=== PATIENT | male | born 1955 | race Caucasian/White ===

== ENCOUNTER 2016-06-11 20:04 | Inpatient (IN) | payer MEDICAID ==
[~2016-06-11] VITALS: Ht 180.3 cm; Wt 113.1 kg
[2016-06-11] MEDS ORDERED: ACETAMINOPHEN 325 MG TAB PO ONE (20:45)
[2016-06-11 21:19] LABS: Hematocrit 41.3 % (41.0-53.0); Hemoglobin 13.4 g/dL (13.5-17.5); Mean Corpuscular Hgb Conc. 32.4 g/dL (32.0-36.0); Mean Corpuscular Volume 92.5 fL (80.0-100.0); Mean Platelet Volume 7.3 fL (7.4-10.4); Platelet Count (auto) 230 10^3/uL (140-450); Red Cell Distribution Width 14.3 % (11.6-16.0); SUSPECT VIEW TRANSMISSION; White Blood Cell 15.6 10^3/uL (4.4-10.8)
[2016-06-11 21:25] LABS: Metamyelocytes % 0; Myelocytes % 0; Promyelocytes % 0; Reactive Lymphocytes 0
[2016-06-11 21:32] LABS: Partial Thromboplastin Time 28.7 sec (22.64-33.71); Prothrombin Time 11.9 sec (9.37-12.3)
[2016-06-11 21:33] LABS: INR 1.16 (0.9-1.15)
[2016-06-11 21:41] LABS: Lactic Acid 3.1 mmol/L (0.4-2.0)
[2016-06-11 21:42] LABS: Albumin 3.9 g/dL (3.4-5.0); BUN/Creatinine Ratio 14.4; Calcium 9.2 mg/dL (8.5-10.1); Potassium 3.9 mmol/L (3.5-5.1); Total Protein 7.9 g/dL (6.4-8.2)
[2016-06-11 22:11] LABS: REFLEX LACTIC ACID YES OR NO YES
[2016-06-11 22:18] LABS: Platelet Estimate Adequate; RBC Morphology Normal
[2016-06-11 23:21] LABS: Lactic Acid 2.1 mmol/L (0.4-2.0)
[2016-06-11 23:29] LABS: REFLEX LACTIC ACID YES OR NO NO
[2016-06-12] VITALS (8 sets, daily range): BP systolic 121–185; BP diastolic 67–98
[2016-06-12] MEDS ORDERED: VANCOMYCIN 1GM/250ML D5W 250 ML IV ONE
[2016-06-12] MEDS ORDERED: PIPERACILLIN-TAZOB 3.375GM 100 ML IV ONE
[2016-06-12] MEDS ORDERED: SODIUM CHLORIDE 0.9% 1,000 ML IV ONE
[2016-06-12] MEDS: SODIUM CHLORIDE 0.9% 1,000 ML IV SCH ×3 (01:14→23:06)
[2016-06-12] MEDS ORDERED: MORPHINE SULF INJ 2 MG/ML SYRINGE 1ML IV PRN (01:15)
[2016-06-12] MEDS ORDERED: PANTOPRAZOLE SODIUM 40 MG/10 ML VIAL IV ONE (01:15)
[2016-06-12] MEDS ORDERED: NITROGLYCERIN 0.4 MG SL TAB SL PRN (01:15)
[2016-06-12] MEDS ORDERED: metroNIDAZOLE 500MG/100ML 100 ML IV ONE (01:15)
[2016-06-12] MEDS ORDERED: ACETAMINOPHEN 325 MG TAB PO PRN (01:15)
[2016-06-12] MEDS ORDERED: ONDANSETRON HCL 4 MG/2 ML VIAL IV PRN (01:15)
[2016-06-12] MEDS ORDERED: IBU800T PO (03:54)
[2016-06-12] MEDS ORDERED: ASPITAB37 PO (03:54)
[2016-06-12] MEDS: cefTRIAXone 1GM/50ML D5W 50 ML IV SCH (03:57)
[2016-06-12 04:16] LABS: Urine Bilirubin Negative (Negative); Urine Blood TRACE /uL (Negative); Urine Color Yellow (Yellow); Urine Hyaline Cast FEW /lpf (0 - 2); Urine Ketone Negative (Negative); Urine Nitrite Negative (Negative); Urine RBC <1 /hpf (0 - 3); Urine Squamous Epithelial Cell FEW /hpf (<5); Urine Urobilinogen Normal (Negative)
[2016-06-12 04:31] LABS: Urine Glucose 1+ mg/dL (Normal)
[2016-06-12] MEDS ORDERED: INFLUENZA QUAD 2016-2017 0.5 ML SYRG IM ONE (05:00)
[2016-06-12] MEDS ORDERED: ENOXAPARIN SOD 30 MG/0.3 ML SYRINGE SC SCH (10:00)
[2016-06-12] MEDS: ENOXAPARIN SOD 40 MG/0.4 ML SYRINGE SC SCH (10:32)
[2016-06-12] MEDS: PANTOPRAZOLE SODIUM 40 MG/10 ML VIAL IV SCH (10:32)
[2016-06-12] MEDS: metroNIDAZOLE 500MG/100ML 100 ML IV SCH ×2 (10:32→18:43)
[2016-06-12] MEDS ORDERED: metFORMIN HYDROCHLORIDE 500 MG TAB PO ONE (15:15)
[2016-06-12] MEDS ORDERED: DEXTROSE (50%) 50ML SYRG IV PRN (15:15)
[2016-06-12] MEDS: InsuLIN REG 1unit/0.01ml Soln (100units/ml) SC SCH ×2 (17:00→22:14)
[2016-06-12] MEDS: ACCU-CHEK COMFORT CURVE STRIP VI SCH ×2 (17:21→22:14)
[2016-06-13] MEDS: cefTRIAXone 1GM/50ML D5W 50 ML IV SCH (01:36)
[2016-06-13] MEDS: metroNIDAZOLE 500MG/100ML 100 ML IV SCH ×3 (02:34→17:23)
[2016-06-13 05:03] VITALS: BP 158/97
[2016-06-13 06:23] LABS: Basophils # (auto) 0 uL; Basophils % (auto) 0.1 % (0.0-2.0); Eosinophils # (auto) 0.2 uL; Eosinophils % (auto) 3.2 % (0.0-7.0); Hematocrit 34.5 % (41.0-53.0); Lymphocytes # (auto) 1.2 uL; Lymphocytes % (auto) 18.1 % (10.0-50.0); Mean Corpuscular Hemoglobin 29.7 pg (28.0-32.0); Mean Corpuscular Hgb Conc. 31.8 g/dL (32.0-36.0); Mean Corpuscular Volume 93.6 fL (80.0-100.0); Mean Platelet Volume 7.6 fL (7.4-10.4); Monocytes # (auto) 0.7 uL; Monocytes % (auto) 9.9 % (0.0-12.0); Neutrophils # (auto) 4.5 uL; Neutrophils % (auto) 68.7 % (37.0-80.0); Platelet Count (auto) 183 10^3/uL (140-450); Red Cell Distribution Width 14.2 % (11.6-16.0); White Blood Cell 6.6 10^3/uL (4.4-10.8)
[2016-06-13] MEDS: InsuLIN REG 1unit/0.01ml Soln (100units/ml) SC SCH ×4 (06:38→22:00)
[2016-06-13 07:00] LABS: Albumin 3.1 g/dL (3.4-5.0); BUN/Creatinine Ratio 14.4; Calcium 8.3 mg/dL (8.5-10.1); Potassium 3.8 mmol/L (3.5-5.1)
[2016-06-13 07:03] LABS: Bilirubin, Total 0.3 mg/dL (0.2-1.0); Total Protein 6.8 g/dL (6.4-8.2)
[2016-06-13] MEDS: ACCU-CHEK COMFORT CURVE STRIP VI SCH ×4 (07:06→22:00)
[2016-06-13 08:18] VITALS: BP 145/78
[2016-06-13 08:58] VITALS: BP 145/78
[2016-06-13] MEDS: PANTOPRAZOLE SODIUM 40 MG/10 ML VIAL IV SCH (09:26)
[2016-06-13] MEDS: ENOXAPARIN SOD 40 MG/0.4 ML SYRINGE SC SCH (09:54)
[2016-06-13] MEDS ORDERED: metFORMIN HYDROCHLORIDE 500 MG TAB PO SCH (10:00)
[2016-06-13] MEDS ORDERED: ENALAPRIL MALEATE 2.5 MG TAB PO ONE (12:45)
[2016-06-13] MEDS: SODIUM CHLORIDE 0.9% 1,000 ML IV SCH ×2 (12:47→23:24)
[2016-06-13 13:00] VITALS: BP 107/56
[2016-06-13 17:00] VITALS: BP 164/100
[2016-06-13] MEDS: metFORMIN HYDROCHLORIDE 500 MG TAB PO SCH (21:39)
[2016-06-13 22:00] VITALS: BP_SYST 155; BP_SYST 158; BP_DIAS 89; BP_DIAS 96
[2016-06-14] MEDS: cefTRIAXone 1GM/50ML D5W 50 ML IV SCH (01:30)
[2016-06-14] MEDS: metroNIDAZOLE 500MG/100ML 100 ML IV SCH (02:15)
[2016-06-14 05:48] VITALS: BP 158/86
[2016-06-14] MEDS: InsuLIN REG 1unit/0.01ml Soln (100units/ml) SC SCH ×4 (06:21→22:00)
[2016-06-14] MEDS: ACCU-CHEK COMFORT CURVE STRIP VI SCH ×4 (06:23→22:00)
[2016-06-14 07:42] VITALS: BP 165/78
[2016-06-14] MEDS: glipiZIDE 5 MG TAB PO SCH ×2 (09:39→17:46)
[2016-06-14] MEDS ORDERED: ENALAPRIL MALEATE 2.5 MG TAB PO SCH (10:00)
[2016-06-14 12:00] VITALS: BP 160/87
[2016-06-14] MEDS: ENOXAPARIN SOD 40 MG/0.4 ML SYRINGE SC SCH (13:32)
[2016-06-14] MEDS: PANTOPRAZOLE 40 MG TAB PO SCH (13:32)
[2016-06-14] MEDS: metFORMIN HYDROCHLORIDE 500 MG TAB PO SCH ×2 (13:33→23:10)
[2016-06-14] MEDS: ENALAPRIL MALEATE 2.5 MG TAB PO SCH ×2 (13:34→23:11)
[2016-06-14] MEDS: FUROSEMIDE 40 MG TAB PO SCH (13:35)
[2016-06-14 16:00] VITALS: BP 163/87
[2016-06-14 20:43] VITALS: BP 144/79
[2016-06-15 05:34] VITALS: BP 156/87
[2016-06-15] MEDS: glipiZIDE 5 MG TAB PO SCH ×2 (06:35→18:26)
[2016-06-15] MEDS: InsuLIN REG 1unit/0.01ml Soln (100units/ml) SC SCH ×4 (06:36→23:03)
[2016-06-15] MEDS: ACCU-CHEK COMFORT CURVE STRIP VI SCH ×4 (06:37→22:00)
[2016-06-15 08:44] VITALS: BP 136/62
[2016-06-15] MEDS: ENOXAPARIN SOD 40 MG/0.4 ML SYRINGE SC SCH (09:17)
[2016-06-15] MEDS: PANTOPRAZOLE 40 MG TAB PO SCH (09:17)
[2016-06-15] MEDS: metFORMIN HYDROCHLORIDE 500 MG TAB PO SCH ×2 (09:18→22:19)
[2016-06-15] MEDS: FUROSEMIDE 40 MG TAB PO SCH (09:18)
[2016-06-15] MEDS: ENALAPRIL MALEATE 2.5 MG TAB PO SCH ×2 (09:24→22:19)
[2016-06-15] MEDS ORDERED: LACTULOSE 20Gm/30ML SOLN PO PRN (12:45)
[2016-06-15 12:50] VITALS: BP 150/87
[2016-06-15 12:57] LABS: Albumin 3.3 g/dL (3.4-5.0); Calcium 8.7 mg/dL (8.5-10.1); Potassium 3.6 mmol/L (3.5-5.1)
[2016-06-15 13:00] LABS: Bilirubin, Total 0.5 mg/dL (0.2-1.0); Total Protein 6.7 g/dL (6.4-8.2)
[2016-06-15] MEDS ORDERED: cefTRIAXone 1GM/50ML D5W 50 ML IV ONE (13:15)
[2016-06-15] MEDS: CLINDAMYCIN 600MG IV 50 ML IV SCH ×2 (13:58→22:19)
[2016-06-15 14:49] LABS: Basophils # (auto) 0 uL; Basophils % (auto) 0.4 % (0.0-2.0); Eosinophils # (auto) 0.2 uL; Eosinophils % (auto) 2.7 % (0.0-7.0); Hematocrit 38.9 % (41.0-53.0); Hemoglobin 12.8 g/dL (13.5-17.5); Lymphocytes % (auto) 15.7 % (10.0-50.0); Mean Corpuscular Hemoglobin 30.3 pg (28.0-32.0); Mean Corpuscular Hgb Conc. 32.8 g/dL (32.0-36.0); Mean Corpuscular Volume 92.5 fL (80.0-100.0); Mean Platelet Volume 7.1 fL (7.4-10.4); Monocytes # (auto) 0.4 uL; Monocytes % (auto) 5.7 % (0.0-12.0); Neutrophils # (auto) 4.9 uL; Neutrophils % (auto) 75.5 % (37.0-80.0); Platelet Count (auto) 272 10^3/uL (140-450); Red Cell Distribution Width 14.5 % (11.6-16.0); White Blood Cell 6.4 10^3/uL (4.4-10.8)
[2016-06-15] MEDS: HYDROcodone-ACET 5/325MG TAB PO PRN (14:57)
[2016-06-15 16:38] VITALS: BP 108/72
[2016-06-15 21:30] VITALS: BP 132/73
[2016-06-16 05:00] VITALS: BP 115/58
[2016-06-16] MEDS: CLINDAMYCIN 600MG IV 50 ML IV SCH ×2 (05:49→13:42)
[2016-06-16] MEDS: glipiZIDE 5 MG TAB PO SCH (06:26)
[2016-06-16] MEDS: InsuLIN REG 1unit/0.01ml Soln (100units/ml) SC SCH ×2 (06:26→11:30)
[2016-06-16] MEDS: ACCU-CHEK COMFORT CURVE STRIP VI SCH ×2 (06:26→11:30)
[2016-06-16] MEDS: PANTOPRAZOLE 40 MG TAB PO SCH (08:55)
[2016-06-16] MEDS: metFORMIN HYDROCHLORIDE 500 MG TAB PO SCH (08:55)
[2016-06-16] MEDS: ENOXAPARIN SOD 40 MG/0.4 ML SYRINGE SC SCH (08:55)
[2016-06-16 08:57] VITALS: BP 127/65
[2016-06-16] MEDS ORDERED: cefTRIAXone 1GM/50ML D5W 50 ML IV SCH (09:00)
[2016-06-16] MEDS: HYDROcodone-ACET 5/325MG TAB PO PRN (09:02)
[2016-06-16] MEDS: ENALAPRIL MALEATE 2.5 MG TAB PO SCH (09:06)
[2016-06-16 11:18] LABS: BUN/Creatinine Ratio 14.4; Calcium 8.9 mg/dL (8.5-10.1); Potassium 4.2 mmol/L (3.5-5.1)
[2016-06-16 13:00] VITALS: BP 148/80
[2016-06-16 13:37] VITALS: BP 130/66
[2016-06-16 15:45] VITALS: BP 127/65
== END 2016-06-16 15:45 | disposition home or self-care (01) | DRG 249 ==
LOC: EDBD 20:04 → ER 20:04 → EAST 20:05
PROVIDERS: ADMIT Nurse Practitioner; ATTEND Internal Medicine
DX: K52.9 Noninfective gastroenteritis and colitis, unspecified (principal); N17.9 Acute kidney failure, unspecified; E87.2 Acidosis; E11.21 Type 2 diabetes mellitus with diabetic nephropathy; I12.9 Hypertensive chronic kidney disease with stage 1 through stage 4 chronic kidney disease, or unspecified chronic kidney disease; E11.65 Type 2 diabetes mellitus with hyperglycemia; L84 Corns and callosities; E11.22 Type 2 diabetes mellitus with diabetic chronic kidney disease; E11.42 Type 2 diabetes mellitus with diabetic polyneuropathy; K76.0 Fatty (change of) liver, not elsewhere classified; E87.1 Hypo-osmolality and hyponatremia; E66.01 Morbid (severe) obesity due to excess calories; E86.0 Dehydration; N18.2 Chronic kidney disease, stage 2 (mild); L03.032 Cellulitis of left toe; Z68.34 Body mass index [BMI] 34.0-34.9, adult; Z23 Encounter for immunization; Z83.6 Family history of other diseases of the respiratory system; Z84.89 Family history of other specified conditions; Z79.899 Other long term (current) drug therapy
CPT/HCPCS: 36415; 71010; 74177; 80048; 80053; 81001; 82962; 83036; 83605; 83690; 84484; 84550; 85007; 85025; 85027; 85610; 85652; 85730; 87040; 87493; 93005; 96365; C9113; J0696; J1815; J2543; J3490

== ENCOUNTER 2021-11-08 13:18 | Inpatient (IN) | payer MEDICARE, MEDICAID ==
[~2021-11-08] VITALS: Ht 180.3 cm; Wt 22.5 kg
[~2021-11-08 13:18] MED LIST: ASPITAB37 PO; IBUP800T26 PO
[2021-11-08 14:48] LABS: Basophils # (auto) 0 10 ^3/uL (0-0.2); Eosinophils # (auto) 0 10 ^3/uL (0-0.8); Eosinophils % (auto) 0.3 % (0.0-7.0); Hemoglobin 8.6 g/dL (13.5-17.5); Lymphocytes # (auto) 0.8 10 ^3/uL (0.4-5.4); Monocytes # (auto) 0.7 10 ^3/uL (0-1.3)
[2021-11-08 14:50] LABS: Basophils % (auto) 0.3 % (0.0-2.0); Lymphocytes % (auto) 8.5 % (10.0-50.0); Mean Corpuscular Hemoglobin 24.3 pg (28.0-32.0); Mean Corpuscular Hgb Conc. 31.9 g/dL (32.0-36.0); Mean Corpuscular Volume 76.4 fL (80.0-100.0); Neutrophils # (auto) 7.9 10 ^3/uL (1.6-8.6); Neutrophils % (auto) 83.9 % (37.0-80.0); Red Blood Cells 3.54 10^6/uL (4.5-5.90); Red Cell Distribution Width 18.3 % (11.8-14.3); White Blood Cell 9.4 10^3/uL (4.4-10.8)
[2021-11-08 15:05] LABS: Lactic Acid w/Reflex 2.8 mmol/L (0.4-2.0)
[2021-11-08 15:12] LABS: Albumin 2.6 g/dL (3.4-5.0); BUN/Creatinine Ratio 15.2; Calcium 8.9 mg/dL (8.5-10.1); Magnesium 1.7 mg/dL (1.6-2.6)
[2021-11-08 15:15] LABS: Bilirubin, Total 0.4 mg/dL (0.2-1.0); Total Protein 6.8 g/dL (6.4-8.2)
[2021-11-08] MEDS ORDERED: SODIUM CHLORIDE 0.9% 1,000 ML IV ONE (16:00)
[2021-11-08] MEDS ORDERED: LACTATED RINGER'S 1,000 ML IV ONE (16:00)
[2021-11-08 17:41] LABS: Urine Bacteria NONE SEEN /hpf (None Seen); Urine Blood Negative /uL (Negative); Urine Specific Gravity 1.021 (1.001-1.035); Urine WBC 1 /hpf (0 - 3)
[2021-11-08] MEDS ORDERED: MORPHINE SULFATE INJ 2 MG/ml SYRG IV PRN ×2 (18:15)
[2021-11-08] MEDS ORDERED: ONDANSETRON HCL 4 MG/2 ML VIAL IV PRN (18:15)
[2021-11-08] MEDS ORDERED: NITROGLYCERIN 0.4 MG SL TAB SL PRN (18:15)
[2021-11-08] MEDS ORDERED: cefTRIAXone 1GM/50ML D5W 50 ML IV ONE (18:15)
[2021-11-08 23:41] VITALS: BP 96/63
[2021-11-08] MEDS: CLINDAMYCIN 600MG IV 50 ML IV SCH (23:42)
[2021-11-09 03:26] LABS: Cholesterol 72 mg/dL (< 200)
[2021-11-09 03:28] LABS: HDL Cholesterol 34 mg/dL (40-59); LDL Cholesterol 31 mg/dL (< 100); Triglycerides 103 mg/dL (< 150)
[2021-11-09 05:13] LABS: Basophils # (auto) 0 10 ^3/uL (0-0.2); Eosinophils # (auto) 0.1 10 ^3/uL (0-0.8); Lymphocytes # (auto) 1.2 10 ^3/uL (0.4-5.4); Mean Corpuscular Hemoglobin 24.2 pg (28.0-32.0); Monocytes # (auto) 0.7 10 ^3/uL (0-1.3); Monocytes % (auto) 10.4 % (0.0-12.0); Neutrophils # (auto) 5.1 10 ^3/uL (1.6-8.6); White Blood Cell 7.1 10^3/uL (4.4-10.8)
[2021-11-09 05:15] LABS: Basophils % (auto) 0.6 % (0.0-2.0); Eosinophils % (auto) 1.1 % (0.0-7.0); Hematocrit 22.9 % (41.0-53.0); Hemoglobin 7.3 g/dL (13.5-17.5); Lymphocytes % (auto) 16.9 % (10.0-50.0); Mean Corpuscular Hgb Conc. 31.7 g/dL (32.0-36.0); Mean Corpuscular Volume 76.3 fL (80.0-100.0); Red Blood Cells 3.01 10^6/uL (4.5-5.90); Red Cell Distribution Width 18.4 % (11.8-14.3)
[2021-11-09 05:22] VITALS: BP 90/41
[2021-11-09 05:31] LABS: Potassium 4.2 mmol/L (3.5-5.1)
[2021-11-09 05:36] LABS: Albumin 2.3 g/dL (3.4-5.0); BUN/Creatinine Ratio 17.1; Calcium 8.7 mg/dL (8.5-10.1)
[2021-11-09 05:39] LABS: Bilirubin, Total 0.2 mg/dL (0.2-1.0); Total Protein 5.9 g/dL (6.4-8.2)
[2021-11-09] MEDS: CLINDAMYCIN 600MG IV 50 ML IV SCH ×3 (06:05→22:12)
[2021-11-09 09:00] VITALS: BP 111/62
[2021-11-09] MEDS: cefTRIAXone 1GM/50ML D5W 50 ML IV SCH (09:35)
[2021-11-09] MEDS: ENOXAPARIN SOD 40 MG/0.4 ML SYRINGE SC SCH (09:35)
[2021-11-09] MEDS ORDERED: DEXTROSE (50%) 50ML SYRG IV PRN (11:00)
[2021-11-09] MEDS: InsuLIN REG 1unit/0.01ml Soln (100units/ml) SC SCH ×3 (11:30→22:00)
[2021-11-09] MEDS: ACCU-CHEK COMFORT CURVE STRIP VI SCH ×3 (11:38→22:12)
[2021-11-09 13:00] VITALS: BP 106/68
[2021-11-09 22:00] VITALS: BP 112/70
[2021-11-10 05:00] VITALS: BP 104/68
[2021-11-10] MEDS: CLINDAMYCIN 600MG IV 50 ML IV SCH ×3 (06:25→22:19)
[2021-11-10] MEDS: InsuLIN REG 1unit/0.01ml Soln (100units/ml) SC SCH ×4 (06:29→22:00)
[2021-11-10] MEDS: ACCU-CHEK COMFORT CURVE STRIP VI SCH ×4 (06:29→22:16)
[2021-11-10 08:30] LABS: Albumin 2.3 g/dL (3.4-5.0); Calcium 8.4 mg/dL (8.5-10.1); Potassium 4.7 mmol/L (3.5-5.1)
[2021-11-10 08:35] LABS: BUN/Creatinine Ratio 17.1; Basophils # (auto) 0 10 ^3/uL (0-0.2); Bilirubin, Total 0.3 mg/dL (0.2-1.0); Eosinophils # (auto) 0.1 10 ^3/uL (0-0.8); Eosinophils % (auto) 0.7 % (0.0-7.0); Hemoglobin 7.3 g/dL (13.5-17.5); Lymphocytes # (auto) 0.8 10 ^3/uL (0.4-5.4); Neutrophils # (auto) 7.1 10 ^3/uL (1.6-8.6); Total Protein 6.1 g/dL (6.4-8.2); White Blood Cell 8.7 10^3/uL (4.4-10.8)
[2021-11-10 08:36] LABS: Basophils % (auto) 0.3 % (0.0-2.0); Hematocrit 22.4 % (41.0-53.0); Lymphocytes % (auto) 9.5 % (10.0-50.0); Mean Corpuscular Hemoglobin 24.7 pg (28.0-32.0); Mean Corpuscular Hgb Conc. 32.5 g/dL (32.0-36.0); Mean Corpuscular Volume 75.9 fL (80.0-100.0); Monocytes # (auto) 0.6 10 ^3/uL (0-1.3); Monocytes % (auto) 7.4 % (0.0-12.0); Neutrophils % (auto) 82.1 % (37.0-80.0); Red Blood Cells 2.96 10^6/uL (4.5-5.90); Red Cell Distribution Width 18.6 % (11.8-14.3)
[2021-11-10 08:52] VITALS: BP 99/60
[2021-11-10] MEDS: ENOXAPARIN SOD 40 MG/0.4 ML SYRINGE SC SCH (09:10)
[2021-11-10] MEDS: cefTRIAXone 1GM/50ML D5W 50 ML IV SCH (09:10)
[2021-11-10 13:00] VITALS: BP 101/66
[2021-11-10 17:15] VITALS: BP 117/72
[2021-11-10 22:00] VITALS: BP 101/67
[2021-11-11 05:00] VITALS: BP 96/66
[2021-11-11] MEDS: CLINDAMYCIN 600MG IV 50 ML IV SCH ×2 (06:08→14:00)
[2021-11-11] MEDS: ACCU-CHEK COMFORT CURVE STRIP VI SCH ×2 (06:28→12:30)
[2021-11-11] MEDS: InsuLIN REG 1unit/0.01ml Soln (100units/ml) SC SCH ×2 (06:28→11:30)
[2021-11-11 07:01] LABS: Basophils # (auto) 0 10 ^3/uL (0-0.2); Eosinophils # (auto) 0.1 10 ^3/uL (0-0.8); Hemoglobin 7.7 g/dL (13.5-17.5); Lymphocytes # (auto) 1.3 10 ^3/uL (0.4-5.4); Monocytes # (auto) 0.6 10 ^3/uL (0-1.3); Red Cell Distribution Width 18.6 % (11.8-14.3)
[2021-11-11 07:05] LABS: Basophils % (auto) 0.5 % (0.0-2.0); Eosinophils % (auto) 1.3 % (0.0-7.0); Hematocrit 23.5 % (41.0-53.0); Lymphocytes % (auto) 21.7 % (10.0-50.0); Mean Corpuscular Hemoglobin 25.1 pg (28.0-32.0); Mean Corpuscular Hgb Conc. 32.7 g/dL (32.0-36.0); Mean Corpuscular Volume 76.7 fL (80.0-100.0); Monocytes % (auto) 10.2 % (0.0-12.0); Neutrophils % (auto) 66.3 % (37.0-80.0); Red Blood Cells 3.07 10^6/uL (4.5-5.90)
[2021-11-11 07:14] LABS: Albumin 2.5 g/dL (3.4-5.0); Calcium 8.8 mg/dL (8.5-10.1); Potassium 4.3 mmol/L (3.5-5.1)
[2021-11-11 07:22] LABS: BUN/Creatinine Ratio 18.3; Bilirubin, Total 0.2 mg/dL (0.2-1.0); Total Protein 6.5 g/dL (6.4-8.2)
[2021-11-11 08:07] VITALS: BP 92/62
[2021-11-11] MEDS: cefTRIAXone 1GM/50ML D5W 50 ML IV SCH (08:40)
[2021-11-11] MEDS: ENOXAPARIN SOD 40 MG/0.4 ML SYRINGE SC SCH (08:41)
[2021-11-11] MEDS ORDERED: FERR-7 PO (10:01)
[2021-11-11] MEDS ORDERED: CLIN300C8 PO (10:01)
[2021-11-11 12:15] VITALS: BP 92/62
[2021-11-11 14:29] VITALS: BP 94/64
== END 2021-11-11 15:58 | disposition home or self-care (01) | DRG 637 ==
LOC: ER 13:18 → TELE 18:10 → TELE-WESTW 22:20
PROVIDERS: ADMIT Registered Nurse; ATTEND Family Medicine
DX: E11.621 Type 2 diabetes mellitus with foot ulcer (principal); E43 Unspecified severe protein-calorie malnutrition; E87.2 Acidosis; Z68.1 Body mass index [BMI] 19.9 or less, adult; L08.9 Local infection of the skin and subcutaneous tissue, unspecified; E86.0 Dehydration; D64.9 Anemia, unspecified; E11.22 Type 2 diabetes mellitus with diabetic chronic kidney disease; E11.51 Type 2 diabetes mellitus with diabetic peripheral angiopathy without gangrene; E11.65 Type 2 diabetes mellitus with hyperglycemia; I12.9 Hypertensive chronic kidney disease with stage 1 through stage 4 chronic kidney disease, or unspecified chronic kidney disease; L97.529 Non-pressure chronic ulcer of other part of left foot with unspecified severity; N18.9 Chronic kidney disease, unspecified; R54 Age-related physical debility; R55 Syncope and collapse; R80.9 Proteinuria, unspecified; R00.0 Tachycardia, unspecified; G62.9 Polyneuropathy, unspecified; S91.109A Unspecified open wound of unspecified toe(s) without damage to nail, initial encounter; X58.XXXA Exposure to other specified factors, initial encounter; Z98.62 Peripheral vascular angioplasty status; Z87.891 Personal history of nicotine dependence; Y93.9 Activity, unspecified; Y92.89 Other specified places as the place of occurrence of the external cause; Y99.8 Other external cause status
CPT/HCPCS: 36415; 71045; 73630; 73718; 80053; 80061; 81001; 82962; 83036; 83605; 83690; 83735; 83880; 84439; 84443; 84484; 85025; 86850; 86900; 86901; 87086; 93005; 93306; 93886; 93925; 96361; 96365; G0378; J0696; J1815; J3490

== ENCOUNTER 2022-01-02 10:36 | Inpatient (IN) | payer MEDICARE, MEDICAID ==
[~2022-01-02] VITALS: Ht 180.3 cm; Wt 85.0 kg
[2022-01-02] VITALS (7 sets, daily range): BP systolic 104–125; BP diastolic 62–73
[~2022-01-02 10:36] MED LIST changes: +CLIN300C8 PO; +FERR-7 PO
[2022-01-02 11:25] LABS: Basophils # (auto) 0 10 ^3/uL (0-0.2); Eosinophils # (auto) 0 10 ^3/uL (0-0.8); Lymphocytes # (auto) 0.9 10 ^3/uL (0.4-5.4); Monocytes # (auto) 0.6 10 ^3/uL (0-1.3); Nucleated Red Blood Cells % 0.1 %
[2022-01-02 11:27] LABS: Basophils % (auto) 0.4 % (0.0-2.0); Hematocrit 19.1 % (41.0-53.0); Lymphocytes % (auto) 10.2 % (10.0-50.0); Mean Corpuscular Hemoglobin 25.1 pg (28.0-32.0); Mean Corpuscular Volume 78.5 fL (80.0-100.0); Monocytes % (auto) 6.8 % (0.0-12.0); Neutrophils % (auto) 82.6 % (37.0-80.0); Red Blood Cells 2.43 10^6/uL (4.5-5.90); Red Cell Distribution Width 20.8 % (11.8-14.3); White Blood Cell 8.4 10^3/uL (4.4-10.8)
[2022-01-02 11:33] LABS: Hemoglobin 6.1 g/dL (13.5-17.5)
[2022-01-02 11:47] LABS: Albumin 1.9 g/dL (3.4-5.0); BUN/Creatinine Ratio 20.4; Calcium 8.1 mg/dL (8.5-10.1); Magnesium 2.1 mg/dL (1.6-2.6); Potassium 3.6 mmol/L (3.5-5.1)
[2022-01-02 11:50] LABS: Bilirubin, Total 0.6 mg/dL (0.2-1.0); Total Protein 5.3 g/dL (6.4-8.2)
[2022-01-02] MEDS ORDERED: ASPirin 81 mg TAB PO ONE (12:30)
[2022-01-02 14:19] LABS: INR 1.13 (0.9-1.15); Partial Thromboplastin Time 27.1 sec (24.6-33.4)
[2022-01-02 15:57] LABS: Urine Bacteria FEW /hpf (None Seen); Urine Blood Negative /uL (Negative); Urine Mucus FEW (None Seen); Urine Specific Gravity 1.021 (1.001-1.035); Urine WBC 2 /hpf (0 - 3)
[2022-01-02] MEDS ORDERED: MORPHINE SULFATE INJ 2 MG/ml SYRG IV PRN ×2 (17:45)
[2022-01-02] MEDS ORDERED: NITROGLYCERIN 0.4 MG SL TAB SL PRN (17:45)
[2022-01-02] MEDS ORDERED: cefTRIAXone 1GM/50ML D5W 50 ML IV ONE (18:00)
[2022-01-02] MEDS: SODIUM CHLORIDE 0.9% 1,000 ML IV SCH (18:00)
[2022-01-02] MEDS ORDERED: DEXTROSE (50%) 50ML SYRG IV PRN (18:45)
[2022-01-02] MEDS: InsuLIN REG 1unit/0.01ml Soln (100units/ml) SC SCH (22:00)
[2022-01-02] MEDS ORDERED: metroNIDAZOLE 500MG/100ML 100 ML IV SCH (22:00)
[2022-01-02] MEDS: PANTOPRAZOLE 40 MG/10 ML VIAL INJ IV SCH (22:00)
[2022-01-02] MEDS: ACCU-CHEK COMFORT CURVE STRIP VI SCH (22:00)
[2022-01-02 23:31] LABS: Hematocrit 17.8 % (41.0-53.0)
[2022-01-02] MEDS ORDERED: ATOR-47 PO (23:42)
[2022-01-02] MEDS ORDERED: ENAL10TA13 PO (23:42)
[2022-01-02] MEDS ORDERED: CLOP75TA70 PO (23:42)
[2022-01-02] MEDS ORDERED: CHOL1TAB30 PO (23:42)
[2022-01-02 23:44] LABS: Hemoglobin 5.8 g/dL (13.5-17.5)
[2022-01-03] VITALS (15 sets, daily range): BP systolic 103–140; BP diastolic 62–87
[2022-01-03] MEDS ORDERED: cefTRIAXone 1GM/50ML D5W 50 ML IV ONE (03:00)
[2022-01-03] MEDS: SODIUM CHLORIDE 0.9% 1,000 ML IV SCH ×2 (04:00→11:00)
[2022-01-03] MEDS: metroNIDAZOLE 500MG/100ML 100 ML IV SCH ×3 (04:24→20:35)
[2022-01-03] MEDS: ACCU-CHEK COMFORT CURVE STRIP VI SCH ×4 (06:10→22:33)
[2022-01-03] MEDS: InsuLIN REG 1unit/0.01ml Soln (100units/ml) SC SCH ×4 (06:11→22:00)
[2022-01-03 07:36] LABS: Basophils # (auto) 0 10 ^3/uL (0-0.2); Eosinophils # (auto) 0 10 ^3/uL (0-0.8); Eosinophils % (auto) 0.5 % (0.0-7.0); Lymphocytes # (auto) 0.7 10 ^3/uL (0.4-5.4); Monocytes # (auto) 0.4 10 ^3/uL (0-1.3); Neutrophils % (auto) 80.5 % (37.0-80.0); White Blood Cell 5.9 10^3/uL (4.4-10.8)
[2022-01-03 07:38] LABS: Basophils % (auto) 0.2 % (0.0-2.0); Hematocrit 17.5 % (41.0-53.0); Lymphocytes % (auto) 12.2 % (10.0-50.0); Mean Corpuscular Hemoglobin 25.6 pg (28.0-32.0); Mean Corpuscular Hgb Conc. 32.5 g/dL (32.0-36.0); Mean Corpuscular Volume 78.8 fL (80.0-100.0); Monocytes % (auto) 6.6 % (0.0-12.0); Neutrophils # (auto) 4.8 10 ^3/uL (1.6-8.6); Red Blood Cells 2.23 10^6/uL (4.5-5.90)
[2022-01-03 07:46] LABS: Hemoglobin 5.7 g/dL (13.5-17.5)
[2022-01-03 07:55] LABS: Albumin 1.6 g/dL (3.4-5.0); BUN/Creatinine Ratio 24.4; Calcium 8.2 mg/dL (8.5-10.1); Potassium 3.3 mmol/L (3.5-5.1)
[2022-01-03 07:58] LABS: Bilirubin, Total 0.4 mg/dL (0.2-1.0)
[2022-01-03 08:54] LABS: Basophils # (auto) 0 10 ^3/uL (0-0.2); Eosinophils # (auto) 0 10 ^3/uL (0-0.8); Eosinophils % (auto) 0.5 % (0.0-7.0); Lymphocytes # (auto) 0.7 10 ^3/uL (0.4-5.4); Mean Corpuscular Volume 79.5 fL (80.0-100.0)
[2022-01-03 08:56] LABS: Basophils % (auto) 0.3 % (0.0-2.0); Hematocrit 20.4 % (41.0-53.0); Mean Corpuscular Hemoglobin 25.5 pg (28.0-32.0); Monocytes # (auto) 0.3 10 ^3/uL (0-1.3); Monocytes % (auto) 5.6 % (0.0-12.0); Neutrophils # (auto) 5.1 10 ^3/uL (1.6-8.6); Neutrophils % (auto) 82.6 % (37.0-80.0); Red Blood Cells 2.56 10^6/uL (4.5-5.90); White Blood Cell 6.2 10^3/uL (4.4-10.8)
[2022-01-03] MEDS ORDERED: cefTRIAXone 1GM/50ML D5W 50 ML IV SCH (09:00)
[2022-01-03 09:07] LABS: Hemoglobin 6.5 g/dL (13.5-17.5); Red Cell Distribution Width 20.9 % (11.8-14.3)
[2022-01-03 09:19] LABS: INR 1.1 (0.9-1.15)
[2022-01-03] MEDS ORDERED: POTASSIUM CHL 20 Meq TABLET PO ONE (11:00)
[2022-01-03] MEDS: PANTOPRAZOLE 40 MG/10 ML VIAL INJ IV SCH ×2 (11:45→22:31)
[2022-01-03] MEDS ORDERED: GOLYTELY 4L KIT PO ONE (12:00)
[2022-01-03 13:51] LABS: % Iron Saturation 13.2 % (20-55)
[2022-01-03] MEDS ORDERED: IOHEXOL 300 MG/ML 100ML BOTTLE IJ ONE (15:49)
[2022-01-03 17:55] LABS: Hemoglobin 7.5 g/dL (13.5-17.5)
[2022-01-03 17:59] LABS: Hematocrit 23.2 % (41.0-53.0)
[2022-01-04] MEDS: SODIUM CHLORIDE 0.9% 1,000 ML IV SCH ×2 (00:20→13:57)
[2022-01-04] MEDS: metroNIDAZOLE 500MG/100ML 100 ML IV SCH ×3 (04:13→21:06)
[2022-01-04 05:00] VITALS: BP 124/66
[2022-01-04] MEDS: ACCU-CHEK COMFORT CURVE STRIP VI SCH ×4 (06:12→21:08)
[2022-01-04] MEDS: InsuLIN REG 1unit/0.01ml Soln (100units/ml) SC SCH ×4 (06:12→21:08)
[2022-01-04 06:50] LABS: Basophils # (auto) 0 10 ^3/uL (0-0.2); Eosinophils # (auto) 0 10 ^3/uL (0-0.8); Monocytes # (auto) 0.3 10 ^3/uL (0-1.3); Neutrophils # (auto) 5.4 10 ^3/uL (1.6-8.6); White Blood Cell 6.2 10^3/uL (4.4-10.8)
[2022-01-04 07:30] LABS: Basophils % (auto) 0.2 % (0.0-2.0); Eosinophils % (auto) 0.3 % (0.0-7.0); Hematocrit 20.7 % (41.0-53.0); Lymphocytes # (auto) 0.4 10 ^3/uL (0.4-5.4); Lymphocytes % (auto) 6.9 % (10.0-50.0); Mean Corpuscular Hemoglobin 26.6 pg (28.0-32.0); Mean Corpuscular Volume 80.4 fL (80.0-100.0); Monocytes % (auto) 5.4 % (0.0-12.0); Neutrophils % (auto) 87.2 % (37.0-80.0); Red Blood Cells 2.58 10^6/uL (4.5-5.90)
[2022-01-04 07:31] LABS: Red Cell Distribution Width 20.4 % (11.8-14.3)
[2022-01-04 07:32] LABS: Hemoglobin 6.9 g/dL (13.5-17.5)
[2022-01-04 07:34] LABS: BUN/Creatinine Ratio 21.1; Calcium 7.6 mg/dL (8.5-10.1); Potassium 3.4 mmol/L (3.5-5.1)
[2022-01-04 09:00] VITALS: BP 113/67
[2022-01-04] MEDS: cefTRIAXone 1GM/50ML D5W 50 ML IV SCH (09:00)
[2022-01-04] MEDS ORDERED: LIDOCAINE VISCOUS 2% 15ML UD ONE (09:27)
[2022-01-04] MEDS ORDERED: MEPERIDINE HCL (25 MG/ML) 1ML VIAL ONE (09:42)
[2022-01-04] MEDS ORDERED: MIDAZOLAM HCL 2MG/2ML 2ml VIAL (1mg/ml) ONE ×2 (09:42→21:39)
[2022-01-04] MEDS ORDERED: fentaNYL CITRATE 100 MCG/2 ML VL ONE ×2 (09:42→21:39)
[2022-01-04] MEDS: PANTOPRAZOLE 40 MG/10 ML VIAL INJ IV SCH ×2 (10:00→21:08)
[2022-01-04] MEDS ORDERED: LABETALOL HCL 5 MG/ML 4ML SYRINGE IV PRN (10:00)
[2022-01-04] MEDS ORDERED: MORPHINE SULFATE 4 MG/ML SYR/VIAL IV PRN (10:00)
[2022-01-04] MEDS ORDERED: HYDROmorphone HCL 2 MG/ML VL/or syr IV PRN (10:00)
[2022-01-04] MEDS ORDERED: ONDANSETRON HCL 4 MG/2 ML VIAL IV PRN (10:00)
[2022-01-04] MEDS ORDERED: MIDAZOLAM HCL 2MG/2ML 2ml VIAL (1mg/ml) IV PRN (10:00)
[2022-01-04] MEDS ORDERED: ACCU-CHEK COMFORT CURVE STRIP VI ONE (10:00)
[2022-01-04] MEDS ORDERED: ePHEDrine SULFATE 50 MG/ML AMP IV PRN (10:00)
[2022-01-04] MEDS ORDERED: DexAMETHasone SOD PHOS 10MG/1ML VIAL INJ ONE ×2 (10:11→21:40)
[2022-01-04] MEDS ORDERED: PROPOFOL 10 MG/ML 20 ML IV ONE ×2 (10:11→21:40)
[2022-01-04] MEDS ORDERED: PHENYLEPHRINE HCL 10 MG/ML VL IV ONE (12:55)
[2022-01-04 13:00] VITALS: BP 129/78
[2022-01-04 16:53] VITALS: BP 119/73
[2022-01-04] MEDS ORDERED: HYDROmorphone HCL 2 MG/ML VL/or syr ONE (21:39)
[2022-01-04] MEDS ORDERED: ROCURONIUM 10MG/ML 10ML VIAL IV ONE (21:39)
[2022-01-04] MEDS ORDERED: ePHEDrine SULFATE 50 MG/ML AMP ONE (21:40)
[2022-01-04] MEDS ORDERED: LIDOCAINE HCL 100 MG/5ML (2%) SYRG INJ IV ONE (21:40)
[2022-01-04] MEDS ORDERED: KETOROLAC TROMETH 30 MG/ML 1ML VIAL ONE (21:40)
[2022-01-04] MEDS ORDERED: GLYCOPYRROLATE 0.2 MG/ML 1ML VIAL ONE (21:40)
[2022-01-05] MEDS: SODIUM CHLORIDE 0.9% 1,000 ML IV SCH ×2 (02:31→16:20)
[2022-01-05] MEDS: metroNIDAZOLE 500MG/100ML 100 ML IV SCH ×3 (04:14→19:39)
[2022-01-05 05:13] LABS: Basophils # (auto) 0 10 ^3/uL (0-0.2); Basophils % (auto) 0.1 % (0.0-2.0); Eosinophils # (auto) 0 10 ^3/uL (0-0.8); Hematocrit 26.2 % (41.0-53.0); Hemoglobin 8.7 g/dL (13.5-17.5); Lymphocytes # (auto) 0.7 10 ^3/uL (0.4-5.4); Monocytes # (auto) 0.2 10 ^3/uL (0-1.3); Red Blood Cells 3.24 10^6/uL (4.5-5.90)
[2022-01-05 05:16] LABS: Lymphocytes % (auto) 10.5 % (10.0-50.0); Mean Corpuscular Hgb Conc. 33.4 g/dL (32.0-36.0); Mean Corpuscular Volume 80.8 fL (80.0-100.0); Monocytes % (auto) 3.3 % (0.0-12.0); Neutrophils # (auto) 5.5 10 ^3/uL (1.6-8.6); Neutrophils % (auto) 86.1 % (37.0-80.0); Red Cell Distribution Width 19.4 % (11.8-14.3); White Blood Cell 6.4 10^3/uL (4.4-10.8)
[2022-01-05 05:47] VITALS: BP 115/73
[2022-01-05] MEDS: ACCU-CHEK COMFORT CURVE STRIP VI SCH ×4 (06:40→21:37)
[2022-01-05] MEDS: InsuLIN REG 1unit/0.01ml Soln (100units/ml) SC SCH ×4 (06:41→21:37)
[2022-01-05] MEDS: PANTOPRAZOLE 40 MG/10 ML VIAL INJ IV SCH ×2 (08:37→21:22)
[2022-01-05] MEDS: cefTRIAXone 1GM/50ML D5W 50 ML IV SCH (08:37)
[2022-01-05 09:06] VITALS: BP 137/81
[2022-01-05] MEDS ORDERED: HEPARIN DRIP/D5W 100UNITS/ML 250 ML IV SCH ×2 (10:00→22:45)
[2022-01-05 11:40] LABS: INR 1.4 (0.9-1.15); Partial Thromboplastin Time 32.7 sec (24.6-33.4)
[2022-01-05 11:46] LABS: Basophils # (auto) 0 10 ^3/uL (0-0.2); Basophils % (auto) 0.1 % (0.0-2.0); Eosinophils # (auto) 0 10 ^3/uL (0-0.8); Hematocrit 31.5 % (41.0-53.0); Hemoglobin 9.2 g/dL (13.5-17.5); Lymphocytes # (auto) 0.9 10 ^3/uL (0.4-5.4); Lymphocytes % (auto) 8.9 % (10.0-50.0); Monocytes # (auto) 0.4 10 ^3/uL (0-1.3); Monocytes % (auto) 4.3 % (0.0-12.0); Neutrophils # (auto) 8.7 10 ^3/uL (1.6-8.6); Neutrophils % (auto) 86.7 % (37.0-80.0); Nucleated Red Blood Cells % 0.1 %; Red Blood Cells 3.44 10^6/uL (4.5-5.90)
[2022-01-05 11:47] LABS: Mean Corpuscular Hemoglobin 26.7 pg (28.0-32.0); Mean Corpuscular Hgb Conc. 29.2 g/dL (32.0-36.0); Mean Corpuscular Volume 91.4 fL (80.0-100.0); Red Cell Distribution Width 19.9 % (11.8-14.3)
[2022-01-05 12:29] VITALS: BP 141/79
[2022-01-05 16:32] VITALS: BP 129/76
[2022-01-05 21:28] LABS: Hematocrit 31.5 % (41.0-53.0); Hemoglobin 10.1 g/dL (13.5-17.5)
[2022-01-05 22:00] VITALS: BP 136/73
[2022-01-05] MEDS ORDERED: HEPARIN SODIUM (PORCINE) 5000 UNITS/ML 1ML VIAL IV ONE (22:30)
[2022-01-06] MEDS: metroNIDAZOLE 500MG/100ML 100 ML IV SCH ×3 (03:47→19:50)
[2022-01-06 05:00] VITALS: BP 120/70
[2022-01-06] MEDS: SODIUM CHLORIDE 0.9% 1,000 ML IV SCH ×2 (05:40→18:39)
[2022-01-06] MEDS: InsuLIN REG 1unit/0.01ml Soln (100units/ml) SC SCH ×4 (06:39→21:38)
[2022-01-06] MEDS: ACCU-CHEK COMFORT CURVE STRIP VI SCH ×4 (06:40→21:37)
[2022-01-06 06:41] LABS: Basophils # (auto) 0 10 ^3/uL (0-0.2); Basophils % (auto) 0.1 % (0.0-2.0); Eosinophils # (auto) 0 10 ^3/uL (0-0.8); Lymphocytes # (auto) 0.4 10 ^3/uL (0.4-5.4); Mean Corpuscular Hgb Conc. 32.7 g/dL (32.0-36.0); Mean Corpuscular Volume 81.3 fL (80.0-100.0)
[2022-01-06 06:42] LABS: Eosinophils % (auto) 0.1 % (0.0-7.0); Hematocrit 24.3 % (41.0-53.0); Lymphocytes % (auto) 3.8 % (10.0-50.0); Mean Corpuscular Hemoglobin 26.6 pg (28.0-32.0); Monocytes # (auto) 0.4 10 ^3/uL (0-1.3); Monocytes % (auto) 3.5 % (0.0-12.0); Neutrophils # (auto) 9.2 10 ^3/uL (1.6-8.6); Neutrophils % (auto) 92.5 % (37.0-80.0); Red Blood Cells 2.99 10^6/uL (4.5-5.90); Red Cell Distribution Width 19.3 % (11.8-14.3); White Blood Cell 9.9 10^3/uL (4.4-10.8)
[2022-01-06 07:24] LABS: INR 1.59 (0.9-1.15)
[2022-01-06 07:44] LABS: Partial Thromboplastin Time 126.9 sec (24.6-33.4)
[2022-01-06] MEDS ORDERED: HEPARIN DRIP/D5W 100UNITS/ML 250 ML IV SCH ×2 (08:30→11:15)
[2022-01-06] MEDS: cefTRIAXone 1GM/50ML D5W 50 ML IV SCH (08:39)
[2022-01-06] MEDS: PANTOPRAZOLE 40 MG/10 ML VIAL INJ IV SCH ×2 (08:39→21:32)
[2022-01-06 09:00] VITALS: BP 92/45
[2022-01-06 10:37] LABS: Hemoglobin 7.9 g/dL (13.5-17.5)
[2022-01-06 10:39] LABS: Hematocrit 24.3 % (41.0-53.0)
[2022-01-06 13:00] VITALS: BP 118/63
[2022-01-06 13:29] LABS: Hematocrit 26.8 % (41.0-53.0); Hemoglobin 8.6 g/dL (13.5-17.5)
[2022-01-06 16:04] LABS: Hemoglobin 8.2 g/dL (13.5-17.5)
[2022-01-06 16:07] LABS: Hematocrit 25.1 % (41.0-53.0)
[2022-01-06 16:38] VITALS: BP 113/68
[2022-01-06 17:06] LABS: INR 1.61 (0.9-1.15); Partial Thromboplastin Time 64.7 sec (24.6-33.4)
[2022-01-06 22:00] VITALS: BP 117/67
[2022-01-06 22:54] LABS: Hemoglobin 7.8 g/dL (13.5-17.5)
[2022-01-06 22:56] LABS: Hematocrit 23.7 % (41.0-53.0)
[2022-01-06 23:02] LABS: INR 1.58 (0.9-1.15); Partial Thromboplastin Time 52.4 sec (24.6-33.4)
[2022-01-07] MEDS: metroNIDAZOLE 500MG/100ML 100 ML IV SCH ×3 (03:56→20:35)
[2022-01-07 05:00] VITALS: BP 147/82
[2022-01-07] MEDS: ACCU-CHEK COMFORT CURVE STRIP VI SCH ×4 (06:54→21:50)
[2022-01-07] MEDS: InsuLIN REG 1unit/0.01ml Soln (100units/ml) SC SCH ×4 (06:54→21:50)
[2022-01-07 08:30] VITALS: BP 130/72
[2022-01-07] MEDS: PANTOPRAZOLE 40 MG/10 ML VIAL INJ IV SCH ×2 (09:25→20:35)
[2022-01-07] MEDS: SODIUM CHLORIDE 0.9% 1,000 ML IV SCH ×3 (09:25→23:38)
[2022-01-07] MEDS: cefTRIAXone 1GM/50ML D5W 50 ML IV SCH (09:25)
[2022-01-07 12:30] VITALS: BP 111/65
[2022-01-07 13:40] LABS: Basophils # (auto) 0 10 ^3/uL (0-0.2); Basophils % (auto) 0.1 % (0.0-2.0); Eosinophils # (auto) 0 10 ^3/uL (0-0.8); Eosinophils % (auto) 0.1 % (0.0-7.0); Hematocrit 23.3 % (41.0-53.0); Hemoglobin 7.6 g/dL (13.5-17.5); Lymphocytes # (auto) 0.3 10 ^3/uL (0.4-5.4); Mean Corpuscular Hgb Conc. 32.7 g/dL (32.0-36.0); Monocytes # (auto) 0.3 10 ^3/uL (0-1.3)
[2022-01-07 13:43] LABS: Lymphocytes % (auto) 3.3 % (10.0-50.0); Mean Corpuscular Hemoglobin 26.7 pg (28.0-32.0); Mean Corpuscular Volume 81.6 fL (80.0-100.0); Monocytes % (auto) 3.7 % (0.0-12.0); Neutrophils # (auto) 7.5 10 ^3/uL (1.6-8.6); Neutrophils % (auto) 92.8 % (37.0-80.0); Red Blood Cells 2.85 10^6/uL (4.5-5.90); Red Cell Distribution Width 19.6 % (11.8-14.3); White Blood Cell 8.1 10^3/uL (4.4-10.8)
[2022-01-07 13:49] LABS: INR 1.38 (0.9-1.15); Partial Thromboplastin Time 38.3 sec (24.6-33.4)
[2022-01-07] MEDS ORDERED: LIDOCAINE 1% (LOCAL ANESTH.) PF 5ml SDV ID ONE (15:45)
[2022-01-07 16:30] VITALS: BP 105/60
[2022-01-07 17:13] LABS: Hematocrit 23.3 % (41.0-53.0); Hemoglobin 7.4 g/dL (13.5-17.5)
[2022-01-07] MEDS: SODIUM CHLOR 0.9% PF (SALINE LOCK) 10ML VIAL/SYR IV SCH (21:47)
[2022-01-07 22:00] VITALS: BP 122/70
[2022-01-08] VITALS (9 sets, daily range): BP systolic 107–135; BP diastolic 50–86
[2022-01-08] MEDS: metroNIDAZOLE 500MG/100ML 100 ML IV SCH ×3 (04:06→21:37)
[2022-01-08] MEDS: InsuLIN REG 1unit/0.01ml Soln (100units/ml) SC SCH ×4 (05:59→21:38)
[2022-01-08] MEDS: ACCU-CHEK COMFORT CURVE STRIP VI SCH ×4 (05:59→21:37)
[2022-01-08 06:31] LABS: Albumin 1.4 g/dL (3.4-5.0); BUN/Creatinine Ratio 18.5; Calcium 7.5 mg/dL (8.5-10.1); Potassium 3.4 mmol/L (3.5-5.1)
[2022-01-08 06:32] LABS: INR 1.39 (0.9-1.15); Partial Thromboplastin Time 34.5 sec (24.6-33.4)
[2022-01-08 06:34] LABS: Bilirubin, Total 0.4 mg/dL (0.2-1.0); Total Protein 3.5 g/dL (6.4-8.2)
[2022-01-08 07:13] LABS: Basophils # (auto) 0 10 ^3/uL (0-0.2); Basophils % (auto) 0.2 % (0.0-2.0); Eosinophils # (auto) 0 10 ^3/uL (0-0.8); Eosinophils % (auto) 0.6 % (0.0-7.0); Hematocrit 22.7 % (41.0-53.0); Hemoglobin 7.5 g/dL (13.5-17.5); Lymphocytes # (auto) 0.7 10 ^3/uL (0.4-5.4); Lymphocytes % (auto) 12.1 % (10.0-50.0); Mean Corpuscular Hemoglobin 26.7 pg (28.0-32.0); Mean Corpuscular Hgb Conc. 33.2 g/dL (32.0-36.0); Mean Corpuscular Volume 80.4 fL (80.0-100.0); Monocytes # (auto) 0.3 10 ^3/uL (0-1.3); Neutrophils # (auto) 4.7 10 ^3/uL (1.6-8.6); Neutrophils % (auto) 81.1 % (37.0-80.0); Nucleated Red Blood Cells % 0.1 %; Red Blood Cells 2.83 10^6/uL (4.5-5.90); Red Cell Distribution Width 19.4 % (11.8-14.3); White Blood Cell 5.7 10^3/uL (4.4-10.8)
[2022-01-08] MEDS ORDERED: GOLYTELY 4L KIT PO ONE (09:30)
[2022-01-08] MEDS: PANTOPRAZOLE 40 MG/10 ML VIAL INJ IV SCH ×2 (09:55→21:37)
[2022-01-08] MEDS: cefTRIAXone 1GM/50ML D5W 50 ML IV SCH (09:55)
[2022-01-08] MEDS: SODIUM CHLOR 0.9% PF (SALINE LOCK) 10ML VIAL/SYR IV SCH ×2 (09:56→21:37)
[2022-01-08] MEDS ORDERED: FUROSEMIDE 40 MG/4 ML VIAL IV ONE (10:15)
[2022-01-08] MEDS ORDERED: SODIUM CHLORIDE 0.9% 1,000 ML IV SCH (10:15)
[2022-01-08] MEDS ORDERED: SODIUM FERR GLUC 62.5MG/5ML 125 MG in SODIUM CHL 0.9% 100 ML IV ONE (10:15)
[2022-01-08] MEDS: SODIUM FERR GLUC 62.5MG/5ML 125 MG in SODIUM CHL 0.9% 100 ML IV SCH (12:21)
[2022-01-08] MEDS ORDERED: POTASSIUM CHL 20MEQ/100ML 200 ML IV ONE (17:20)
[2022-01-08] MEDS: POTASSIUM CHL 20MEQ/100ML 100 ML IV SCH ×2 (17:43→18:55)
[2022-01-08] MEDS: NEOMYCIN SULFATE 500 MG TAB PO SCH (18:27)
[2022-01-09] VITALS (39 sets, daily range): BP systolic 74–144; BP diastolic 29–86
[2022-01-09] MEDS: metroNIDAZOLE 500MG/100ML 100 ML IV SCH ×3 (03:34→21:30)
[2022-01-09] MEDS: ACCU-CHEK COMFORT CURVE STRIP VI SCH ×3 (06:17→17:38)
[2022-01-09] MEDS: InsuLIN REG 1unit/0.01ml Soln (100units/ml) SC SCH ×3 (06:17→17:35)
[2022-01-09] MEDS: cefTRIAXone 1GM/50ML D5W 50 ML IV SCH (09:27)
[2022-01-09] MEDS: PANTOPRAZOLE 40 MG/10 ML VIAL INJ IV SCH ×2 (09:28→22:12)
[2022-01-09 09:29] LABS: Basophils # (auto) 0 10 ^3/uL (0-0.2); Basophils % (auto) 0.3 % (0.0-2.0); Eosinophils # (auto) 0 10 ^3/uL (0-0.8); Eosinophils % (auto) 0.1 % (0.0-7.0); Hematocrit 30.2 % (41.0-53.0); Hemoglobin 9.8 g/dL (13.5-17.5); Lymphocytes # (auto) 0.6 10 ^3/uL (0.4-5.4); Lymphocytes % (auto) 8.4 % (10.0-50.0); Mean Corpuscular Hemoglobin 27.2 pg (28.0-32.0); Mean Corpuscular Hgb Conc. 32.6 g/dL (32.0-36.0); Mean Corpuscular Volume 83.5 fL (80.0-100.0); Monocytes # (auto) 0.3 10 ^3/uL (0-1.3); Monocytes % (auto) 4.4 % (0.0-12.0); Neutrophils # (auto) 6.7 10 ^3/uL (1.6-8.6); Neutrophils % (auto) 86.8 % (37.0-80.0); Red Blood Cells 3.62 10^6/uL (4.5-5.90); Red Cell Distribution Width 19.1 % (11.8-14.3); White Blood Cell 7.7 10^3/uL (4.4-10.8)
[2022-01-09] MEDS: SODIUM CHLOR 0.9% PF (SALINE LOCK) 10ML VIAL/SYR IV SCH ×2 (09:29→22:09)
[2022-01-09] MEDS ORDERED: TPN PER PHARMACY 0 ML IV SCH (09:45)
[2022-01-09] MEDS ORDERED: FUROSEMIDE 20 MG/2 ML VIAL IV ONE (09:45)
[2022-01-09 09:47] LABS: BUN/Creatinine Ratio 18.8; Calcium 7.6 mg/dL (8.5-10.1); Potassium 3.2 mmol/L (3.5-5.1)
[2022-01-09] MEDS ORDERED: NEOMYCIN SULFATE 500 MG TAB PO SCH (10:00)
[2022-01-09] MEDS: NEOMYCIN SULFATE 500 MG TAB PO SCH (10:21)
[2022-01-09] MEDS ORDERED: PHENYLEPHRINE HCL 10 MG/ML VL IV ONE (10:24)
[2022-01-09] MEDS ORDERED: SUCCINYLCHOLINE 20mg/ml 100mg/5ml SYRINGE IV ONE (10:24)
[2022-01-09] MEDS ORDERED: ROCURONIUM 10MG/ML 10ML VIAL IV ONE (10:24)
[2022-01-09] MEDS: POTASSIUM CHL 20MEQ/100ML 100 ML IV SCH ×2 (11:22→17:20)
[2022-01-09 13:31] LABS: Magnesium 1.6 mg/dL (1.6-2.6); Phosphorus 2.3 mg/dL (2.5-4.90)
[2022-01-09] MEDS ORDERED: cefTRIAXone 1GM/50ML D5W 50 ML IV ONE (13:48)
[2022-01-09] MEDS ORDERED: fentaNYL CITRATE 100 MCG/2 ML VL ONE (13:49)
[2022-01-09] MEDS ORDERED: MIDAZOLAM HCL 2MG/2ML 2ml VIAL (1mg/ml) ONE (13:49)
[2022-01-09] MEDS ORDERED: HYDROmorphone HCL 2 MG/ML VL/or syr ONE (14:33)
[2022-01-09] MEDS ORDERED: ETOMIDATE (2MG/ML) 20ML VIAL IV ONE (15:45)
[2022-01-09] MEDS: SODIUM FERR GLUC 62.5MG/5ML 125 MG in SODIUM CHL 0.9% 100 ML IV SCH (16:25)
[2022-01-09] MEDS: MAGNESIUM SULFATE 1GM/100ML 100 ML IV SCH ×2 (17:25→18:39)
[2022-01-09] MEDS: MIDAZOLAM DRIP 50 mg/50mL 50 ML IV SCH (17:30)
[2022-01-09] MEDS: fentaNYL Drip 2500mCg/250mlNS 250 ML IV SCH (17:34)
[2022-01-09] MEDS ORDERED: POTASSIUM PHOSP 22MEQ(15MMOLE) in NS 100 ML IV ONE (20:00)
[2022-01-09] MEDS ORDERED: ALBUMIN 25% 100 ML IV ONE (20:11)
[2022-01-09] MEDS ORDERED: SODIUM CHLORIDE 0.9% 1,000 ML IV ONE ×2 (20:15→22:00)
[2022-01-09] MEDS: ALBUMIN 25% 100 ML IV SCH (20:20)
[2022-01-09] MEDS: D5W/SOD CHL 0.45% 1,000 ML IV SCH (21:00)
[2022-01-09 22:17] LABS: Hemoglobin 8.3 g/dL (13.5-17.5)
[2022-01-09 22:19] LABS: Hematocrit 25.1 % (41.0-53.0)
[2022-01-09] MEDS ORDERED: NOREPINEPHRINE 8 MG/250ML KIT 250 ML IV ONE (23:57)
[2022-01-10] VITALS (92 sets, daily range): BP systolic 86–136; BP diastolic 29–65
[2022-01-10] MEDS ORDERED: DEXTROSE (50%) 50ML SYRG IV SCH
[2022-01-10] MEDS: NOREPINEPHRINE 8 MG/250ML KIT 250 ML IV SCH ×2 (00:09→23:59)
[2022-01-10] MEDS: MIDAZOLAM DRIP 50 mg/50mL 50 ML IV SCH (00:16)
[2022-01-10] MEDS: ACCU-CHEK COMFORT CURVE STRIP VI SCH ×4 (00:16→18:16)
[2022-01-10] MEDS: AMINO ACID INFUSION IN D10W 1,000 ML IV NR ×2 (00:55→19:49)
[2022-01-10 03:32] LABS: Basophils # (auto) 0 10 ^3/uL (0-0.2); Basophils % (auto) 0.7 % (0.0-2.0); Eosinophils # (auto) 0 10 ^3/uL (0-0.8); Eosinophils % (auto) 0.7 % (0.0-7.0); Hematocrit 26.9 % (41.0-53.0); Lymphocytes # (auto) 0.6 10 ^3/uL (0.4-5.4); Lymphocytes % (auto) 9.4 % (10.0-50.0); Mean Corpuscular Hemoglobin 27.9 pg (28.0-32.0); Mean Corpuscular Hgb Conc. 33.5 g/dL (32.0-36.0); Mean Corpuscular Volume 83.3 fL (80.0-100.0); Monocytes # (auto) 0.3 10 ^3/uL (0-1.3); Monocytes % (auto) 5.2 % (0.0-12.0); Neutrophils # (auto) 5.3 10 ^3/uL (1.6-8.6); Red Blood Cells 3.23 10^6/uL (4.5-5.90); Red Cell Distribution Width 18.6 % (11.8-14.3); White Blood Cell 6.3 10^3/uL (4.4-10.8)
[2022-01-10] MEDS: ALBUMIN 25% 100 ML IV SCH ×2 (03:44→18:17)
[2022-01-10 03:48] LABS: Albumin 1.7 g/dL (3.4-5.0); Calcium 7.2 mg/dL (8.5-10.1); Magnesium 1.6 mg/dL (1.6-2.6); Potassium 3.2 mmol/L (3.5-5.1)
[2022-01-10 03:53] LABS: BUN/Creatinine Ratio 21.1; Bilirubin, Total 0.8 mg/dL (0.2-1.0); Phosphorus 3.5 mg/dL (2.5-4.90); Total Protein 3.5 g/dL (6.4-8.2)
[2022-01-10] MEDS: D5W/SOD CHL 0.45% 1,000 ML IV SCH (04:15)
[2022-01-10] MEDS: metroNIDAZOLE 500MG/100ML 100 ML IV SCH ×3 (04:49→20:25)
[2022-01-10] MEDS ORDERED: POTASSIUM CHL 20MEQ/100ML 100 ML IV ONE (05:00)
[2022-01-10] MEDS: InsuLIN REG 1unit/0.01ml Soln (100units/ml) SC SCH ×4 (05:25→18:15)
[2022-01-10] MEDS: MAGNESIUM SULFATE 1GM/100ML 100 ML IV SCH ×2 (06:16→07:52)
[2022-01-10] MEDS ORDERED: FUROSEMIDE 20 MG/2 ML VIAL IV ONE (08:45)
[2022-01-10] MEDS ORDERED: MAGNESIUM SULFATE 1GM/100ML 100 ML IV ONE (08:45)
[2022-01-10] MEDS ORDERED: POTASSIUM CHL 20MEQ/100ML 100 ML IV SCH (08:45)
[2022-01-10] MEDS ORDERED: MAGNESIUM SULFATE 1GM/100ML 100 ML IV SCH (09:00)
[2022-01-10] MEDS: cefTRIAXone 1GM/50ML D5W 50 ML IV SCH (09:59)
[2022-01-10] MEDS: POTASSIUM CHL 20MEQ/100ML 100 ML IV SCH ×2 (10:39→13:23)
[2022-01-10] MEDS: PANTOPRAZOLE 40 MG/10 ML VIAL INJ IV SCH ×2 (10:39→22:33)
[2022-01-10] MEDS: SODIUM CHLOR 0.9% PF (SALINE LOCK) 10ML VIAL/SYR IV SCH ×2 (10:41→22:00)
[2022-01-10] MEDS: SODIUM FERR GLUC 62.5MG/5ML 125 MG in SODIUM CHL 0.9% 100 ML IV SCH (16:54)
[2022-01-10] MEDS ORDERED: ALBUMIN 25% 100 ML IV ONE (17:26)
[2022-01-10] MEDS: fentaNYL Drip 2500mCg/250mlNS 250 ML IV SCH (17:30)
[2022-01-10] MEDS ORDERED: TPN PER PHARMACY IV NR ×9 (20:00)
[2022-01-11] VITALS (104 sets, daily range): BP systolic 95–167; BP diastolic 31–86
[2022-01-11] MEDS: ACCU-CHEK COMFORT CURVE STRIP VI SCH ×5 (00:06→23:46)
[2022-01-11] MEDS: InsuLIN REG 1unit/0.01ml Soln (100units/ml) SC SCH ×5 (00:08→23:47)
[2022-01-11] MEDS: metroNIDAZOLE 500MG/100ML 100 ML IV SCH ×3 (03:30→20:15)
[2022-01-11 03:48] LABS: Basophils # (auto) 0 10 ^3/uL (0-0.2); Basophils % (auto) 0.4 % (0.0-2.0); Eosinophils # (auto) 0.1 10 ^3/uL (0-0.8); Eosinophils % (auto) 1.4 % (0.0-7.0); Hematocrit 25.7 % (41.0-53.0); Hemoglobin 8.5 g/dL (13.5-17.5); Lymphocytes # (auto) 0.8 10 ^3/uL (0.4-5.4); Lymphocytes % (auto) 16.4 % (10.0-50.0); Mean Corpuscular Hemoglobin 27.9 pg (28.0-32.0); Mean Corpuscular Volume 84.5 fL (80.0-100.0); Monocytes # (auto) 0.3 10 ^3/uL (0-1.3); Monocytes % (auto) 5.3 % (0.0-12.0); Neutrophils # (auto) 3.9 10 ^3/uL (1.6-8.6); Neutrophils % (auto) 76.5 % (37.0-80.0); Nucleated Red Blood Cells % 0.1 %; Red Blood Cells 3.04 10^6/uL (4.5-5.90); Red Cell Distribution Width 18.5 % (11.8-14.3); White Blood Cell 5.2 10^3/uL (4.4-10.8)
[2022-01-11 05:31] LABS: Albumin 2.1 g/dL (3.4-5.0); Calcium 7.4 mg/dL (8.5-10.1); Potassium 3.5 mmol/L (3.5-5.1)
[2022-01-11 05:34] LABS: Magnesium 2.2 mg/dL (1.6-2.6)
[2022-01-11 05:38] LABS: Bilirubin, Total 0.5 mg/dL (0.2-1.0); Phosphorus 1.5 mg/dL (2.5-4.90); Total Protein 3.9 g/dL (6.4-8.2)
[2022-01-11] MEDS: SODIUM CHLOR 0.9% PF (SALINE LOCK) 10ML VIAL/SYR IV SCH ×2 (07:44→22:39)
[2022-01-11] MEDS: cefTRIAXone 1GM/50ML D5W 50 ML IV SCH (08:44)
[2022-01-11] MEDS: PANTOPRAZOLE 40 MG/10 ML VIAL INJ IV SCH ×2 (08:44→22:39)
[2022-01-11] MEDS ORDERED: POTASSIUM PHOSPHATE 44 MEQ in D5W 5% 250 ML IV ONE (10:00)
[2022-01-11] MEDS: fentaNYL Drip 2500mCg/250mlNS 250 ML IV SCH (11:47)
[2022-01-11] MEDS: MIDAZOLAM DRIP 50 mg/50mL 50 ML IV SCH (11:47)
[2022-01-11] MEDS: SODIUM FERR GLUC 62.5MG/5ML 125 MG in SODIUM CHL 0.9% 100 ML IV SCH (12:16)
[2022-01-11] MEDS ORDERED: MIDAZOLAM HCL 2MG/2ML 2ml VIAL (1mg/ml) IV PRN (14:15)
[2022-01-11] MEDS: HYDROmorphone HCL 2 MG/ML VL/or syr IV PRN (14:52)
[2022-01-11] MEDS ORDERED: TPN PER PHARMACY IV NR ×11 (20:00)
[2022-01-11] MEDS: NOREPINEPHRINE 8 MG/250ML KIT 250 ML IV SCH (23:23)
[2022-01-12] VITALS (97 sets, daily range): BP systolic 95–185; BP diastolic 31–98
[2022-01-12] MEDS: HYDROmorphone HCL 2 MG/ML VL/or syr IV PRN (00:15)
[2022-01-12] MEDS: metroNIDAZOLE 500MG/100ML 100 ML IV SCH ×3 (04:54→20:40)
[2022-01-12] MEDS: InsuLIN REG 1unit/0.01ml Soln (100units/ml) SC SCH ×4 (05:12→23:54)
[2022-01-12] MEDS: ACCU-CHEK COMFORT CURVE STRIP VI SCH ×4 (05:13→23:54)
[2022-01-12 05:28] LABS: Basophils # (auto) 0 10 ^3/uL (0-0.2); Basophils % (auto) 0.5 % (0.0-2.0); Eosinophils # (auto) 0.1 10 ^3/uL (0-0.8); Eosinophils % (auto) 1.2 % (0.0-7.0); Hematocrit 28.6 % (41.0-53.0); Hemoglobin 9.5 g/dL (13.5-17.5); Lymphocytes % (auto) 15.6 % (10.0-50.0); Mean Corpuscular Hemoglobin 28.5 pg (28.0-32.0); Mean Corpuscular Hgb Conc. 33.4 g/dL (32.0-36.0); Mean Corpuscular Volume 85.5 fL (80.0-100.0); Monocytes # (auto) 0.4 10 ^3/uL (0-1.3); Monocytes % (auto) 5.9 % (0.0-12.0); Neutrophils # (auto) 5.1 10 ^3/uL (1.6-8.6); Neutrophils % (auto) 76.8 % (37.0-80.0); Nucleated Red Blood Cells % 0.1 %; Red Blood Cells 3.34 10^6/uL (4.5-5.90); White Blood Cell 6.6 10^3/uL (4.4-10.8)
[2022-01-12 05:37] LABS: Albumin 1.9 g/dL (3.4-5.0); BUN/Creatinine Ratio 27.6; Calcium 7.7 mg/dL (8.5-10.1); Magnesium 1.8 mg/dL (1.6-2.6)
[2022-01-12 05:40] LABS: Bilirubin, Total 0.4 mg/dL (0.2-1.0); Phosphorus 2.3 mg/dL (2.5-4.90)
[2022-01-12] MEDS: SODIUM CHLOR 0.9% PF (SALINE LOCK) 10ML VIAL/SYR IV SCH ×2 (07:25→21:01)
[2022-01-12] MEDS ORDERED: EPINEPHrine HCL 0.5 ML NEB ONE (08:37)
[2022-01-12] MEDS: cefTRIAXone 1GM/50ML D5W 50 ML IV SCH (08:53)
[2022-01-12] MEDS: PANTOPRAZOLE 40 MG/10 ML VIAL INJ IV SCH ×2 (08:53→21:01)
[2022-01-12] MEDS ORDERED: POTASSIUM PHOSP 22MEQ(15MMOLE) in NS 100 ML IV ONE (09:30)
[2022-01-12] MEDS: MIDAZOLAM DRIP 50 mg/50mL 50 ML IV SCH (10:52)
[2022-01-12] MEDS: fentaNYL Drip 2500mCg/250mlNS 250 ML IV SCH (10:52)
[2022-01-12] MEDS ORDERED: hydrALAZINE HCL 20 MG/ML VL IV PRN (11:45)
[2022-01-12] MEDS: SODIUM FERR GLUC 62.5MG/5ML 125 MG in SODIUM CHL 0.9% 100 ML IV SCH (12:00)
[2022-01-12] MEDS ORDERED: ENOXAPARIN SOD 40 MG/0.4 ML SYRINGE SC ONE (18:45)
[2022-01-12] MEDS ORDERED: TPN PER PHARMACY IV NR ×10 (20:00)
[2022-01-12] MEDS: NOREPINEPHRINE 8 MG/250ML KIT 250 ML IV SCH (23:54)
[2022-01-13] VITALS (75 sets, daily range): BP systolic 112–155; BP diastolic 53–73
[2022-01-13] MEDS: metroNIDAZOLE 500MG/100ML 100 ML IV SCH ×3 (03:12→20:04)
[2022-01-13] MEDS: InsuLIN REG 1unit/0.01ml Soln (100units/ml) SC SCH ×4 (05:25→23:54)
[2022-01-13] MEDS: ACCU-CHEK COMFORT CURVE STRIP VI SCH ×4 (05:26→23:54)
[2022-01-13 06:14] LABS: Basophils # (auto) 0 10 ^3/uL (0-0.2); Basophils % (auto) 0.5 % (0.0-2.0); Eosinophils # (auto) 0.1 10 ^3/uL (0-0.8); Eosinophils % (auto) 1.8 % (0.0-7.0); Hematocrit 27.7 % (41.0-53.0); Hemoglobin 9.4 g/dL (13.5-17.5); Mean Corpuscular Hemoglobin 29.2 pg (28.0-32.0); Mean Corpuscular Hgb Conc. 33.8 g/dL (32.0-36.0); Mean Corpuscular Volume 86.3 fL (80.0-100.0); Monocytes # (auto) 0.4 10 ^3/uL (0-1.3); Neutrophils # (auto) 4.5 10 ^3/uL (1.6-8.6); Neutrophils % (auto) 75.7 % (37.0-80.0); Nucleated Red Blood Cells % 0.1 %; Red Blood Cells 3.21 10^6/uL (4.5-5.90); Red Cell Distribution Width 18.2 % (11.8-14.3)
[2022-01-13 06:33] LABS: Potassium 4.2 mmol/L (3.5-5.1)
[2022-01-13 06:41] LABS: Albumin 1.8 g/dL (3.4-5.0); BUN/Creatinine Ratio 33.3; Calcium 7.6 mg/dL (8.5-10.1)
[2022-01-13 06:44] LABS: Bilirubin, Total 0.4 mg/dL (0.2-1.0); Phosphorus 2.5 mg/dL (2.5-4.90); Total Protein 4.2 g/dL (6.4-8.2)
[2022-01-13] MEDS: SODIUM CHLOR 0.9% PF (SALINE LOCK) 10ML VIAL/SYR IV SCH ×2 (07:27→21:40)
[2022-01-13] MEDS: PANTOPRAZOLE 40 MG/10 ML VIAL INJ IV SCH ×2 (08:31→21:40)
[2022-01-13] MEDS: cefTRIAXone 1GM/50ML D5W 50 ML IV SCH (08:31)
[2022-01-13] MEDS: ENOXAPARIN SOD 40 MG/0.4 ML SYRINGE SC SCH (08:31)
[2022-01-13] MEDS ORDERED: SODIUM PHOSP 20MEQ(15MMOL) IN NS 100 ML IV ONE (11:00)
[2022-01-13] MEDS: MIDAZOLAM DRIP 50 mg/50mL 50 ML IV SCH (11:17)
[2022-01-13] MEDS: fentaNYL Drip 2500mCg/250mlNS 250 ML IV SCH (11:17)
[2022-01-13] MEDS: SODIUM FERR GLUC 62.5MG/5ML 125 MG in SODIUM CHL 0.9% 100 ML IV SCH (14:54)
[2022-01-13] MEDS ORDERED: TPN PER PHARMACY IV NR ×11 (20:00)
[2022-01-14] VITALS (31 sets, daily range): BP systolic 47–169; BP diastolic 28–138
[2022-01-14] MEDS: metroNIDAZOLE 500MG/100ML 100 ML IV SCH ×3 (03:57→20:27)
[2022-01-14 04:19] LABS: Basophils # (auto) 0 10 ^3/uL (0-0.2); Basophils % (auto) 0.4 % (0.0-2.0); Eosinophils # (auto) 0.1 10 ^3/uL (0-0.8); Eosinophils % (auto) 1.6 % (0.0-7.0); Hematocrit 26.6 % (41.0-53.0); Hemoglobin 9.1 g/dL (13.5-17.5); Lymphocytes # (auto) 0.9 10 ^3/uL (0.4-5.4); Lymphocytes % (auto) 13.4 % (10.0-50.0); Mean Corpuscular Hemoglobin 29.1 pg (28.0-32.0); Mean Corpuscular Hgb Conc. 34.1 g/dL (32.0-36.0); Mean Corpuscular Volume 85.4 fL (80.0-100.0); Monocytes # (auto) 0.5 10 ^3/uL (0-1.3); Monocytes % (auto) 6.4 % (0.0-12.0); Neutrophils # (auto) 5.5 10 ^3/uL (1.6-8.6); Neutrophils % (auto) 78.2 % (37.0-80.0); Red Blood Cells 3.12 10^6/uL (4.5-5.90); Red Cell Distribution Width 18.3 % (11.8-14.3)
[2022-01-14 04:35] LABS: Albumin 1.7 g/dL (3.4-5.0); BUN/Creatinine Ratio 38.9; Calcium 7.7 mg/dL (8.5-10.1); Magnesium 2.1 mg/dL (1.6-2.6); Phosphorus 3.2 mg/dL (2.5-4.90); Potassium 4.2 mmol/L (3.5-5.1)
[2022-01-14] MEDS: ENOXAPARIN SOD 40 MG/0.4 ML SYRINGE SC SCH ×2 (10:00→10:04)
[2022-01-14] MEDS: PANTOPRAZOLE 40 MG/10 ML VIAL INJ IV SCH ×2 (10:03→22:10)
[2022-01-14] MEDS: cefTRIAXone 1GM/50ML D5W 50 ML IV SCH (10:03)
[2022-01-14] MEDS: SODIUM CHLOR 0.9% PF (SALINE LOCK) 10ML VIAL/SYR IV SCH ×2 (10:03→22:10)
[2022-01-14] MEDS: HYDROmorphone HCL 2 MG/ML VL/or syr IV PRN (10:43)
[2022-01-14] MEDS: InsuLIN REG 1unit/0.01ml Soln (100units/ml) SC SCH ×2 (12:00→18:00)
[2022-01-14] MEDS: ACCU-CHEK COMFORT CURVE STRIP VI SCH ×3 (13:35→23:59)
[2022-01-14] MEDS: SODIUM FERR GLUC 62.5MG/5ML 125 MG in SODIUM CHL 0.9% 100 ML IV SCH (14:25)
[2022-01-14] MEDS: fentaNYL Drip 2500mCg/250mlNS 250 ML IV SCH (17:30)
[2022-01-14] MEDS: MIDAZOLAM DRIP 50 mg/50mL 50 ML IV SCH (17:30)
[2022-01-14] MEDS ORDERED: TPN PER PHARMACY IV NR ×11 (20:00)
[2022-01-14] MEDS: NOREPINEPHRINE 8 MG/250ML KIT 250 ML IV SCH ×2 (22:11)
[2022-01-15] VITALS (53 sets, daily range): BP systolic 83–167; BP diastolic 33–87
[2022-01-15] MEDS: HYDROmorphone HCL 2 MG/ML VL/or syr IV PRN (01:31)
[2022-01-15] MEDS: metroNIDAZOLE 500MG/100ML 100 ML IV SCH ×3 (03:40→19:41)
[2022-01-15 05:33] LABS: Albumin 1.8 g/dL (3.4-5.0); Calcium 7.7 mg/dL (8.5-10.1); Magnesium 1.9 mg/dL (1.6-2.6); Potassium 4.3 mmol/L (3.5-5.1)
[2022-01-15 05:35] LABS: BUN/Creatinine Ratio 46.3
[2022-01-15 05:37] LABS: Bilirubin, Total 0.4 mg/dL (0.2-1.0); Phosphorus 3.1 mg/dL (2.5-4.90); Total Protein 4.7 g/dL (6.4-8.2)
[2022-01-15 05:42] LABS: Basophils # (auto) 0.1 10 ^3/uL (0-0.2); Basophils % (auto) 0.7 % (0.0-2.0); Eosinophils # (auto) 0.1 10 ^3/uL (0-0.8); Hematocrit 26.4 % (41.0-53.0); Lymphocytes # (auto) 0.8 10 ^3/uL (0.4-5.4); Lymphocytes % (auto) 10.4 % (10.0-50.0); Mean Corpuscular Hgb Conc. 34.1 g/dL (32.0-36.0); Mean Corpuscular Volume 87.9 fL (80.0-100.0); Monocytes # (auto) 0.6 10 ^3/uL (0-1.3); Monocytes % (auto) 7.2 % (0.0-12.0); Neutrophils # (auto) 6.3 10 ^3/uL (1.6-8.6); Neutrophils % (auto) 80.7 % (37.0-80.0); Red Blood Cells 3.01 10^6/uL (4.5-5.90); Red Cell Distribution Width 18.2 % (11.8-14.3); White Blood Cell 7.8 10^3/uL (4.4-10.8)
[2022-01-15] MEDS: ACCU-CHEK COMFORT CURVE STRIP VI SCH ×4 (06:00→23:44)
[2022-01-15] MEDS: InsuLIN REG 1unit/0.01ml Soln (100units/ml) SC SCH ×5 (06:00→23:45)
[2022-01-15] MEDS: cefTRIAXone 1GM/50ML D5W 50 ML IV SCH (09:56)
[2022-01-15] MEDS: PANTOPRAZOLE 40 MG/10 ML VIAL INJ IV SCH ×2 (09:56→21:02)
[2022-01-15] MEDS: SODIUM CHLOR 0.9% PF (SALINE LOCK) 10ML VIAL/SYR IV SCH ×2 (10:04→21:02)
[2022-01-15] MEDS ORDERED: KETOROLAC TROMETH 30 MG/ML 1ML VIAL IV ONE (15:00)
[2022-01-15] MEDS: SODIUM FERR GLUC 62.5MG/5ML 125 MG in SODIUM CHL 0.9% 100 ML IV SCH (15:11)
[2022-01-15] MEDS ORDERED: TPN PER PHARMACY IV NR ×12 (20:00)
[2022-01-16] VITALS (18 sets, daily range): BP systolic 102–148; BP diastolic 31–85
[2022-01-16] MEDS: metroNIDAZOLE 500MG/100ML 100 ML IV SCH ×3 (03:38→20:26)
[2022-01-16 04:24] LABS: Albumin 1.6 g/dL (3.4-5.0); Anion Gap 5 (5-15); Blood Urea Nitrogen 34 mg/dL (7-18); Calcium 7.4 mg/dL (8.5-10.1); Carbon Dioxide 29 mmol/L (21-32); Chloride 102 mmol/L (98-107); Glucose 132 mg/dL (74-106); Magnesium 2.2 mg/dL (1.6-2.6); Sodium 136 mmol/L (136-145)
[2022-01-16 04:27] LABS: Alanine Aminotransferase < 6 U/L (16-61); Alkaline Phosphatase 41 U/L (45-117); Aspartate Aminotransferase 8 U/L (15-37); BUN/Creatinine Ratio 55.7; Bilirubin, Total 0.4 mg/dL (0.2-1.0); GFR African American 169 mL/min; GFR Non-African American 140 mL/min; Phosphorus 4.1 mg/dL (2.5-4.90)
[2022-01-16] MEDS: InsuLIN REG 1unit/0.01ml Soln (100units/ml) SC SCH ×4 (06:00→23:00)
[2022-01-16] MEDS: ACCU-CHEK COMFORT CURVE STRIP VI SCH ×4 (06:31→22:55)
[2022-01-16] MEDS: cefTRIAXone 1GM/50ML D5W 50 ML IV SCH (09:01)
[2022-01-16] MEDS: PANTOPRAZOLE 40 MG/10 ML VIAL INJ IV SCH ×2 (10:19→22:54)
[2022-01-16] MEDS: SODIUM CHLOR 0.9% PF (SALINE LOCK) 10ML VIAL/SYR IV SCH ×2 (10:19→22:17)
[2022-01-16] MEDS ORDERED: KETOROLAC TROMETH 30 MG/ML 1ML VIAL IV ONE (11:45)
[2022-01-16] MEDS: SODIUM FERR GLUC 62.5MG/5ML 125 MG in SODIUM CHL 0.9% 100 ML IV SCH (12:41)
[2022-01-16] MEDS ORDERED: TPN PER PHARMACY IV NR ×13 (20:00)
[2022-01-17] MEDS: metroNIDAZOLE 500MG/100ML 100 ML IV SCH ×3 (04:20→20:24)
[2022-01-17 05:00] VITALS: BP 107/94
[2022-01-17] MEDS: InsuLIN REG 1unit/0.01ml Soln (100units/ml) SC SCH (06:00)
[2022-01-17 06:17] LABS: Eosinophils # (auto) 0.1 10 ^3/uL (0-0.8); Hematocrit 23.8 % (41.0-53.0); Mean Corpuscular Hemoglobin 29.2 pg (28.0-32.0); Mean Corpuscular Hgb Conc. 33.7 g/dL (32.0-36.0); Monocytes # (auto) 0.4 10 ^3/uL (0-1.3); Red Blood Cells 2.75 10^6/uL (4.5-5.90)
[2022-01-17 06:19] LABS: Basophils # (auto) 0 10 ^3/uL (0-0.2); Basophils % (auto) 0.8 % (0.0-2.0); Eosinophils % (auto) 1.5 % (0.0-7.0); Lymphocytes # (auto) 0.6 10 ^3/uL (0.4-5.4); Lymphocytes % (auto) 10.7 % (10.0-50.0); Mean Corpuscular Volume 86.7 fL (80.0-100.0); Monocytes % (auto) 7.2 % (0.0-12.0); Neutrophils # (auto) 4.8 10 ^3/uL (1.6-8.6); Neutrophils % (auto) 79.8 % (37.0-80.0); Red Cell Distribution Width 18.1 % (11.8-14.3)
[2022-01-17 06:34] LABS: BUN/Creatinine Ratio 50.8; Calcium 7.3 mg/dL (8.5-10.1); Potassium 4.4 mmol/L (3.5-5.1)
[2022-01-17] MEDS: ACCU-CHEK COMFORT CURVE STRIP VI SCH (06:43)
[2022-01-17 08:25] VITALS: BP 109/44
[2022-01-17 09:00] VITALS: BP 109/44
[2022-01-17] MEDS: cefTRIAXone 1GM/50ML D5W 50 ML IV SCH (09:58)
[2022-01-17] MEDS: PANTOPRAZOLE 40 MG/10 ML VIAL INJ IV SCH (09:58)
[2022-01-17] MEDS: SODIUM CHLOR 0.9% PF (SALINE LOCK) 10ML VIAL/SYR IV SCH ×2 (10:01→22:21)
[2022-01-17 13:00] VITALS: BP 120/63
[2022-01-17] MEDS: SODIUM FERR GLUC 62.5MG/5ML 125 MG in SODIUM CHL 0.9% 100 ML IV SCH (13:54)
[2022-01-17 17:00] VITALS: BP 129/90
[2022-01-17 22:00] VITALS: BP 118/55
[2022-01-17] MEDS: PANTOPRAZOLE 40 MG TAB PO SCH (22:21)
[2022-01-18] MEDS: metroNIDAZOLE 500MG/100ML 100 ML IV SCH (04:13)
[2022-01-18 05:00] VITALS: BP 157/58
[2022-01-18 07:55] VITALS: BP 120/66
[2022-01-18] MEDS ORDERED: Ensure Pudding Vanilla 4 oz Cup PO SCH (08:00)
[2022-01-18] MEDS ORDERED: Ensure HIGH Protein Vanilla 8oz Bottle PO SCH (08:00)
[2022-01-18 09:01] VITALS: BP 120/66
[2022-01-18] MEDS: cefTRIAXone 1GM/50ML D5W 50 ML IV SCH (09:02)
[2022-01-18] MEDS: PANTOPRAZOLE 40 MG TAB PO SCH ×2 (09:02→21:16)
[2022-01-18] MEDS: SODIUM CHLOR 0.9% PF (SALINE LOCK) 10ML VIAL/SYR IV SCH ×2 (09:02→21:16)
[2022-01-18] MEDS: Ensure HIGH Protein Vanilla 8oz Bottle PO SCH ×3 (09:02→19:49)
[2022-01-18] MEDS: Ensure Pudding Vanilla 4 oz Cup PO SCH ×3 (09:03→19:49)
[2022-01-18 13:00] VITALS: BP 93/62
[2022-01-18] MEDS: metroNIDAZOLE 500 MG TAB PO SCH ×2 (13:47→21:16)
[2022-01-18 17:00] VITALS: BP 109/73
[2022-01-18] MEDS: FERROUS SULFATE 325mg EC TAB PO SCH (19:49)
[2022-01-18 22:00] VITALS: BP 112/67
[2022-01-19] MEDS: HYDROmorphone HCL 2 MG/ML VL/or syr IV PRN ×2 (04:52→13:28)
[2022-01-19] MEDS: metroNIDAZOLE 500 MG TAB PO SCH ×3 (04:53→22:20)
[2022-01-19 05:00] VITALS: BP 126/73
[2022-01-19 06:15] LABS: Basophils # (auto) 0 10 ^3/uL (0-0.2); Eosinophils # (auto) 0.1 10 ^3/uL (0-0.8); Hemoglobin 7.9 g/dL (13.5-17.5); Lymphocytes # (auto) 0.7 10 ^3/uL (0.4-5.4); Mean Corpuscular Hgb Conc. 33.2 g/dL (32.0-36.0); Monocytes # (auto) 0.5 10 ^3/uL (0-1.3); Neutrophils # (auto) 4.7 10 ^3/uL (1.6-8.6); Nucleated Red Blood Cells % 0.1 %
[2022-01-19 06:18] LABS: Basophils % (auto) 0.6 % (0.0-2.0); Eosinophils % (auto) 1.2 % (0.0-7.0); Hematocrit 23.9 % (41.0-53.0); Lymphocytes % (auto) 11.2 % (10.0-50.0); Mean Corpuscular Hemoglobin 29.2 pg (28.0-32.0); Mean Corpuscular Volume 87.9 fL (80.0-100.0); Monocytes % (auto) 8.3 % (0.0-12.0); Neutrophils % (auto) 78.7 % (37.0-80.0); Red Blood Cells 2.71 10^6/uL (4.5-5.90); Red Cell Distribution Width 19.2 % (11.8-14.3)
[2022-01-19 06:25] LABS: Calcium 7.5 mg/dL (8.5-10.1); Potassium 3.9 mmol/L (3.5-5.1)
[2022-01-19 06:27] LABS: BUN/Creatinine Ratio 36.2
[2022-01-19] MEDS: Ensure Pudding Vanilla 4 oz Cup PO SCH ×3 (08:00→18:15)
[2022-01-19] MEDS: Ensure HIGH Protein Vanilla 8oz Bottle PO SCH ×3 (08:00→18:15)
[2022-01-19] MEDS: FERROUS SULFATE 325mg EC TAB PO SCH ×2 (08:25→17:52)
[2022-01-19 09:00] VITALS: BP 115/54
[2022-01-19] MEDS: SODIUM CHLOR 0.9% PF (SALINE LOCK) 10ML VIAL/SYR IV SCH ×2 (09:10→22:20)
[2022-01-19] MEDS: levoFLOXacin 500 MG TAB PO SCH (10:21)
[2022-01-19] MEDS: PANTOPRAZOLE 40 MG TAB PO SCH ×2 (10:21→22:20)
[2022-01-19 13:00] VITALS: BP 106/70
[2022-01-19 17:00] VITALS: BP 125/69
[2022-01-19] MEDS: HYDROcodone-ACET 5/325MG TAB PO PRN (17:52)
[2022-01-19 22:00] VITALS: BP 109/70
[2022-01-20] MEDS: HYDROcodone-ACET 5/325MG TAB PO PRN ×4 (00:17→21:11)
[2022-01-20 05:00] VITALS: BP 117/57
[2022-01-20] MEDS: metroNIDAZOLE 500 MG TAB PO SCH ×3 (06:15→21:09)
[2022-01-20 09:00] VITALS: BP 127/64
[2022-01-20] MEDS: levoFLOXacin 500 MG TAB PO SCH (09:05)
[2022-01-20] MEDS: Ensure HIGH Protein Vanilla 8oz Bottle PO SCH ×3 (09:06→17:21)
[2022-01-20] MEDS: Ensure Pudding Vanilla 4 oz Cup PO SCH ×3 (09:06→17:21)
[2022-01-20] MEDS: FERROUS SULFATE 325mg EC TAB PO SCH ×2 (09:06→17:22)
[2022-01-20] MEDS: PANTOPRAZOLE 40 MG TAB PO SCH ×2 (09:06→21:10)
[2022-01-20] MEDS: SODIUM CHLOR 0.9% PF (SALINE LOCK) 10ML VIAL/SYR IV SCH ×2 (09:07→21:09)
[2022-01-20 12:57] VITALS: BP 131/61
[2022-01-20] MEDS: HYDROmorphone HCL 2 MG/ML VL/or syr IV PRN (16:09)
[2022-01-20 17:20] VITALS: BP 97/70
[2022-01-20 22:00] VITALS: BP 160/67
[2022-01-21] MEDS: HYDROcodone-ACET 5/325MG TAB PO PRN ×4 (03:44→23:32)
[2022-01-21 05:00] VITALS: BP 121/53
[2022-01-21] MEDS: metroNIDAZOLE 500 MG TAB PO SCH (06:16)
[2022-01-21 09:03] VITALS: BP 116/50
[2022-01-21] MEDS ORDERED: DEXTROSE (50%) 50ML SYRG IV PRN (10:45)
[2022-01-21] MEDS: PANTOPRAZOLE 40 MG TAB PO SCH ×2 (10:52→21:20)
[2022-01-21] MEDS: levoFLOXacin 500 MG TAB PO SCH (10:52)
[2022-01-21] MEDS: FERROUS SULFATE 325mg EC TAB PO SCH (10:52)
[2022-01-21] MEDS: InsuLIN REG 1unit/0.01ml Soln (100units/ml) SC SCH ×2 (11:03→17:00)
[2022-01-21 11:59] LABS: Hematocrit 29.7 % (41.0-53.0); Hemoglobin 9.5 g/dL (13.5-17.5)
[2022-01-21] MEDS: ACCU-CHEK COMFORT CURVE STRIP VI SCH ×3 (12:22→21:22)
[2022-01-21] MEDS: Ensure HIGH Protein Vanilla 8oz Bottle PO SCH ×3 (12:22→18:18)
[2022-01-21] MEDS: Ensure Pudding Vanilla 4 oz Cup PO SCH ×3 (12:22→18:19)
[2022-01-21] MEDS: SODIUM CHLOR 0.9% PF (SALINE LOCK) 10ML VIAL/SYR IV SCH ×2 (12:22→21:21)
[2022-01-21 12:27] VITALS: BP 102/57
[2022-01-21 13:10] VITALS: BP 127/67
[2022-01-21 16:32] VITALS: BP 114/53
[2022-01-21] MEDS: HYDROmorphone HCL 2 MG/ML VL/or syr IV PRN (20:21)
[2022-01-21 22:00] VITALS: BP 129/100
[2022-01-21] MEDS ORDERED: InsuLIN REG 1unit/0.01ml Soln (100units/ml) SC SCH (22:00)
[2022-01-22 05:00] VITALS: BP 142/70
[2022-01-22] MEDS: InsuLIN REG 1unit/0.01ml Soln (100units/ml) SC SCH ×2 (06:15→13:08)
[2022-01-22] MEDS: ACCU-CHEK COMFORT CURVE STRIP VI SCH ×2 (06:16→12:34)
[2022-01-22] MEDS: Ensure HIGH Protein Vanilla 8oz Bottle PO SCH ×2 (08:16→12:34)
[2022-01-22] MEDS: HYDROcodone-ACET 5/325MG TAB PO PRN (08:16)
[2022-01-22] MEDS: Ensure Pudding Vanilla 4 oz Cup PO SCH ×2 (08:16→12:34)
[2022-01-22 08:20] VITALS: BP 127/67
[2022-01-22 09:00] VITALS: BP 127/67
[2022-01-22] MEDS: PANTOPRAZOLE 40 MG TAB PO SCH (11:05)
[2022-01-22] MEDS: SODIUM CHLOR 0.9% PF (SALINE LOCK) 10ML VIAL/SYR IV SCH (11:05)
[2022-01-22] MEDS: levoFLOXacin 500 MG TAB PO SCH (11:05)
[2022-01-22] MEDS: HYDROmorphone HCL 2 MG/ML VL/or syr IV PRN (11:48)
[2022-01-22 13:00] VITALS: BP 139/67
== END 2022-01-22 14:50 | DRG 329 ==
LOC: EDBD 10:36 → ER 10:36 → TELE 17:40 → TELE-CENTR 22:44 → ICU WEST 01-09 16:22 → TELE-CENTR 01-16 16:48 → CENTRAL 01-17 10:38
PROVIDERS: ADMIT Registered Nurse; ATTEND Internal Medicine
PROC: 30233N1 Transfusion of Nonautologous Red Blood Cells into Peripheral Vein, Percutaneous Approach (ICD-10-PCS; principal; 2022-01-02)
PROC: 05HC33Z Insertion of Infusion Device into Left Basilic Vein, Percutaneous Approach (ICD-10-PCS; 2022-01-02)
PROC: B54NZZA Ultrasonography of Left Upper Extremity Veins, Guidance (ICD-10-PCS; 2022-01-02)
PROC: 0DJ08ZZ Inspection of Upper Intestinal Tract, Via Natural or Artificial Opening Endoscopic (ICD-10-PCS; 2022-01-04)
PROC: 0DBN8ZX Excision of Sigmoid Colon, Via Natural or Artificial Opening Endoscopic, Diagnostic (ICD-10-PCS; 2022-01-04)
PROC: 0DBN0ZZ Excision of Sigmoid Colon, Open Approach (ICD-10-PCS; 2022-01-09)
PROC: 5A1945Z Respiratory Ventilation, 24-96 Consecutive Hours (ICD-10-PCS; 2022-01-09)
PROC: 0BH17EZ Insertion of Endotracheal Airway into Trachea, Via Natural or Artificial Opening (ICD-10-PCS; 2022-01-09)
PROC: 30233K1 Transfusion of Nonautologous Frozen Plasma into Peripheral Vein, Percutaneous Approach (ICD-10-PCS; 2022-01-09)
DX: C18.7 Malignant neoplasm of sigmoid colon (principal); E43 Unspecified severe protein-calorie malnutrition; J96.00 Acute respiratory failure, unspecified whether with hypoxia or hypercapnia; R57.1 Hypovolemic shock; I21.A1 Myocardial infarction type 2; K92.2 Gastrointestinal hemorrhage, unspecified; J98.11 Atelectasis; I82.622 Acute embolism and thrombosis of deep veins of left upper extremity; D62 Acute posthemorrhagic anemia; E86.0 Dehydration; D50.9 Iron deficiency anemia, unspecified; Z20.822 Contact with and (suspected) exposure to COVID-19; E11.40 Type 2 diabetes mellitus with diabetic neuropathy, unspecified; E11.621 Type 2 diabetes mellitus with foot ulcer; G70.00 Myasthenia gravis without (acute) exacerbation; K76.0 Fatty (change of) liver, not elsewhere classified; L97.509 Non-pressure chronic ulcer of other part of unspecified foot with unspecified severity; R29.6 Repeated falls; K64.8 Other hemorrhoids; D69.6 Thrombocytopenia, unspecified; E87.70 Fluid overload, unspecified; L89.91 Pressure ulcer of unspecified site, stage 1; Z28.310 Unvaccinated for COVID-19; Z87.891 Personal history of nicotine dependence; Z68.22 Body mass index [BMI] 22.0-22.9, adult
CPT/HCPCS: 36415; 36430; 36569; 36600; 43235; 45380; 71045; 73560; 74177; 80048; 80053; 80069; 81001; 82378; 82805; 82962; 83540; 83550; 83735; 84100; 84478; 84484; 84550; 85014; 85018; 85025; 85384; 85610; 85730; 86850; 86900; 86901; 86920; 87070; 87081; 87205; 93005; 93971; 94002; 94003; 94760; 96360; 97110; 97116; 97163; 97530; 99291; C9113; G0378; J0696; J1100; J1815; J1885; J2250; J2704; J3480; J3490; J7060; J7131; P9047